=== PATIENT | male | born 1950 | race Caucasian/White ===

== ENCOUNTER → 2020-01-27 | Outpatient (CLI) | payer MEDICARE, OTHER, SELFPAY ==
[2020-01-27 15:21] VITALS: BMI 26.6
[2020-01-27 16:55] LABS: Absolute Lymphocyte Count 2.09 X10^3/uL (0.83-4.51); Absolute Neutrophil Count 3.1 X10^3/uL (2.0-7.7); Basophil# 0.06 X10^3/uL; Eosinophils% 3.4 % (0-5); Hematocrit 43.5 % (40-54); Lymphocyte # 2.09 X10^3/ul (4.0); Lymphocyte % 35.2 % (19-41); Mean Corp Hgb Conc 32.2 g/dL (32-36); Mean Corpuscular Hgb 30.4 pg (27.0-32.0); Mean Corpuscular Volume 94.6 fL (80-94); Mean Platelet Vol. 11.2 fl (6.2-12.0); Monocyte# 0.48 X10^3/uL; Monocyte% 8.1 % (0-10); NRBC Flagged by Analyzer 0 % (0-5); Neutrophil # 3.09 X10^3/uL (2.7-7.7); Platelet Count 138 K/mm3 (150-450); RBC Distribution Width CV 12.3 % (11.6-14.6); RBC Distribution Width SD 42.5 fl (35.1-43.9); White Blood Count 5.9 K/mm3 (4.4-11.0)
== END | disposition home or self-care (01) ==
LOC: LAB 16:27
PROVIDERS: PCP Family Medicine; Referring Provider Internal Medicine Cardiovascular Disease; Visit Provider Internal Medicine Cardiovascular Disease
DX: E78.2 Mixed hyperlipidemia (principal); R55 Syncope and collapse; R42 Dizziness and giddiness
CPT/HCPCS: 36415; 85025

== ENCOUNTER → 2020-02-12 | Outpatient (CLI) | payer MEDICARE, OTHER, SELFPAY ==
[2020-01-27 15:21] VITALS: BMI 26.6
--- NOTE | 2020-02-12 12:48 | CDU_ITS ---
Reason For Study: Near syncope Rt. Velocities/BP Lt. Velocities/BP Prox CCA 77.3/14.7 cm/sec. Prox CCA 93/17.3 cm/sec. Mid CCA 94.3/18.6 cm/sec. Mid CCA 90.4/17.3 cm/sec. Dist CCA 78.6/17.3 cm/sec. Dist CCA 83.8/18.6 cm/sec. Prox ICA 66.9/17.3 cm/sec. Prox ICA 73.4/17.3 cm/sec. Mid ICA 104.7/34.3 cm/sec. Mid ICA 96.9/31.7 cm/sec. Dist ICA 89.1/27.8 cm/sec. Dist ICA 100.8/29.1 cm/sec. Rt. ICA/CCA = 1.3. Lt. ICA/CCA = 1.1. Prox ECA 103.4/4.3 cm/sec. Prox ECA 89.1/3 cm/sec. Rt. Vert. 65.6/17.3 cm/sec. Lt. Vert. 65.6/17.3 cm/sec. Right Extracranial There is intimal thickening but no significant atherosclerotic plaque noted in the right common carotid artery. There is homogeneous, smooth atherosclerotic plaque noted in the right internal carotid artery. There is intimal thickening but no significant atherosclerotic plaque noted in the right external carotid artery. Antegrade flow is noted in the right vertebral artery. Left Extracranial There is intimal thickening but no significant atherosclerotic plaque noted in the left common carotid artery. There is intimal thickening but no significant atherosclerotic plaque noted in the left internal carotid artery. There is intimal thickening but no significant atherosclerotic plaque noted in the left external carotid artery. Antegrade flow is noted in the left vertebral artery. Procedure Carotid Duplex 72607. Exam performed in department. Interpretation Summary Smooth plague right proximal internal carotid with <50% stenosis <50% stenosis right external carotid Widely patent left internal carotid with <50% stenosis <50% stenosis left external carotid Patent and antegrade bilateral vertebrals Ordering Physician: Cali Macario Referring Physician: MD Harika Oswald Performed By: Mague Riley T
--- NOTE | 2020-02-12 12:48 | ECHOD_ITS ---
Reason For Study: Syncope/Near Syncope Procedure This was a 2D Doppler, Color Flow transthoracic echocardiogram. Contrast injection was performed. Exam performed in department. Left Ventricle Normal LV size. Left ventricular systolic function is normal. The estimated ejection fraction is 65 %. No evidence for diastolic dysfunction. No regional wall motion abnormalities noted. Right Ventricle Normal RV size. Normal systolic function. Atria Normal left atrium. Normal right atrium. No doppler evidence for ASD. Bubble contrast study negative for right to left interatrial shunt. Mitral Valve There is no mitral annular calcification. Mild diffuse mitral valve thickening. Trivial mitral valve insufficiency. Tricuspid Valve Normal tricuspid valve. Trivial tricuspid valve insufficiency. Right ventricular systolic pressure estimated to be 24 mmHg. Aortic Valve Trisinus/trileaflet aortic valve. Mild diffuse aortic valve thickening. Pulmonic Valve The pulmonic valve is not well visualized. Mild (1+) eccentric pulmonic valve insufficiency. Great Vessels The aortic root is not well visualized. Pericardium/Pleural No pericardial effusion. Medication 22 gauge I.V. with prn adaptor inserted into right arm. Performed a rapid injection of agitated mix of 9 cc saline and 1cc air to assess for atrial septal defect. MMode/2D Measurements & Calculations LVIDd: 4.4 cm IVSd: 1.3 cm LA dimension: 3.8 cm LVIDs: 2.8 cm LVPWd: 1.2 cm FS: 37.1 % LAV(MOD-bp): 49.0 ml LA A4 area: 16.6 cm2 RA A4 area: 15.8 cm2 LAV(MOD-bp) Indexed: 23.8 ml/m2 LAV(MOD-sp2): 58.5 ml LAV(MOD-sp4): 41.6 ml Time Measurements MV dec time: 0.36 sec Doppler Measurements & Calculations MV E max indra: 70.1 cm/sec Lat Peak E' Indra: 10.4 cm/sec Med Peak E' Indra: 8.8 cm/sec MV A max indra: 90.1 cm/sec E/E' lat: 6.7 E/E' med: 8.0 MV E/A: 0.78 MV V2 max: 93.2 cm/sec MV P1/2t max indra: 73.1 cm/sec Ao V2 max: 130.1 cm/sec MV max P.5 mmHg MV P1/2t: 98.8 msec Ao max P.8 mmHg MV V2 mean: 47.4 cm/sec MV dec slope: 216.8 cm/sec2 MV mean P.1 mmHg MV V2 VTI: 25.0 cm MVA(P1/2t): 2.2 cm2 LV V1 max: 102.6 cm/sec PA V2 max: 95.3 cm/sec TR max indra: 231.1 cm/sec LV V1 max P.2 mmHg TR max P.4 mmHg Interpretation Summary Contrast injection was performed. Left ventricular systolic function is normal. The estimated ejection fraction is 65 %. Mild diffuse mitral valve thickening. Trivial mitral valve insufficiency. Trivial tricuspid valve insufficiency. Mild diffuse aortic valve thickening. Mild (1+) eccentric pulmonic valve insufficiency. Right ventricular systolic pressure estimated to be 24 mmHg. No evidence for diastolic dysfunction. Bubble contrast study negative for right to left interatrial shunt. Ordering Physician: Cali Macario Referring Physician: MD Harika Oswald Performed By: Ren Walsh [facility]
== END | disposition home or self-care (01) ==
PROVIDERS: PCP Family Medicine; Referring Provider Internal Medicine Cardiovascular Disease; Visit Provider Internal Medicine Cardiovascular Disease
DX: R55 Syncope and collapse (principal); R42 Dizziness and giddiness; E78.2 Mixed hyperlipidemia
CPT/HCPCS: 93306; 93880

== ENCOUNTER → 2020-03-04 | Outpatient (CLI) | payer MEDICARE, OTHER, SELFPAY ==
[2020-01-27 15:21] VITALS: BMI 26.6
== END | disposition home or self-care (01) ==
LOC: LABSPEC 17:37
PROVIDERS: PCP Family Medicine
DX: J02.9 Acute pharyngitis, unspecified (principal); Z20.828 Contact with and (suspected) exposure to other viral communicable diseases
CPT/HCPCS: 87635; G2023; U0003

== ENCOUNTER → 2023-10-23 | Outpatient (CLI) | payer MEDICARE, SELFPAY | END | disposition home or self-care (01) | PROVIDERS: PCP Family Medicine; Visit Provider Family Medicine | DX: G47.10 Hypersomnia, unspecified (principal); R06.83 Snoring | CPT/HCPCS: 95810 ==

== ENCOUNTER 2023-10-30 01:58 | Inpatient (IN) | payer MEDICARE, OTHER, SELFPAY ==
[2023-10-30] VITALS (12 sets, daily range): BP systolic 132–179; BP diastolic 64–84; PULSE 59–95; RESP 16–18; TEMP 36.3–37.4; O2SAT 92–100; BMI 28.7; BMI 29.0
[2023-10-30 02:24] LABS: Absolute Lymphocyte Count 2.28 X10^3/uL (0.83-4.51); Absolute Neutrophil Count 8.6 X10^3/uL (2.0-7.7); Basophil% 0.8 % (0-1); Eosinophil# 0.23 X10^3/uL; Eosinophils% 1.9 % (0-5); Hematocrit 41.7 % (40-54); Hemoglobin 13.8 g/dL (13.0-16.5); Lymphocyte # 2.28 X10^3/ul (0.83-4.51); Lymphocyte % 19.1 % (19-41); Mean Corp Hgb Conc 33.1 g/dL (32-36); Mean Corpuscular Hgb 29.7 pg (27.0-32.0); Mean Corpuscular Volume 89.9 fL (80-94); Mean Platelet Vol. 10.8 fl (6.2-12.0); Monocyte# 0.67 X10^3/uL; Monocyte% 5.6 % (0-10); NRBC Flagged by Analyzer 0 % (0-5); Neutrophil # 8.61 X10^3/uL (2.7-7.7); Neutrophil % 72.1 % (47-70); Platelet Count 145 K/mm3 (150-450); RBC Distribution Width CV 12.2 % (11.6-14.6); RBC Distribution Width SD 39.7 fl (35.1-43.9); Red Blood Count 4.64 M/mm3 (4.6-6.2)
--- NOTE | 2023-10-30 02:29 | EDS_ITS ---
HPI HPI - GI History of Present Illness Chief Complaint: Abd Pain Informant: patient Abdominal Pain/Flank Pain Onset: Hours (6-7) Context: Gradual Onset Timing: Continuous Quality: Aching Location: - (across upper abd, no radiation; no back, chest, or shoulder pain) Current Severity: Moderate Maximum Severity: Moderate Worsened by: Movement Relieved by: Nothing Nausea/Vomiting/Emesis GI Symptom: Positive for Nausea and Vomiting Onset: Today Quality: Positive for Nonbilious Episodes: 1 Diarrhea/Melena/Hematochezia GI Symptom: Negative for Diarrhea, Melena or Hematochezia Associated Symptoms Associated Symptoms: Negative for Dysuria, Frequency or Hematuria Narrative Narrative: Patient presenting with constant upper abdominal discomfort not colicky, starting about 2 hours after eating a couple pieces of pizza for dinner. Has been unrelenting. Never had this abdominal pain before. Some nausea and 1 bout of nonbloody emesis with it. No history of prior abdominal surgeries that he can recall. [facility] Medical History Depressive disorder Dizziness Generalized anxiety disorder Lightheadedness Mixed hyperlipidemia Home Medications buspirone 15 mg tablet 15 mg PO BID 01/25/20 [History Last Taken Unknown] dutasteride 0.5 mg capsule 0.5 mg PO DAILY 01/25/20 [History Last Taken Unknown] fluticasone propionate 50 mcg/actuation nasal spray,suspension (Flonase Allergy Relief) 1 spray intranasal BID 01/25/20 [History Last Taken Unknown] lorazepam 0.5 mg tablet 0.5 mg PO DAILY PRN anxiety 01/25/20 [History Last Taken Unknown] venlafaxine 37.5 mg capsule,extended release 24 hr (Effexor XR) 37.5 mg PO BID 01/25/20 [History Last Taken Unknown] naproxen 500 mg tablet (Naprosyn) 500 mg PO BID 10/30/23 [History Last Taken Unknown] Allergy/AdvReac Type Severity Reaction Status Date / Time bupropion [From Wellbutrin] AdvReac Severe anxiety Verified 10/30/23 01:59 nortriptyline AdvReac Severe Lightheaded Verified 10/30/23 01:59 ness sertraline AdvReac Severe libido Verified 10/30/23 01:59 tamsulosin AdvReac Severe Lightheaded Verified 10/30/23 01:59 ness Family History (Updated 01/27/20 @ 15:22 by Ginny Centeno) Father Amyotrophic lateral sclerosis (ALS) Mother Cardiac pacemaker in situ Surgical History History of tonsillectomy and adenoidectomy History of vasectomy Status post nasal septoplasty Social History Smoking Status: Former smoker alcohol intake: current details: 2 beers daily substance use type: does not use caffeine: No ROS ROS ED Constitutional Constitutional ED: Denies chills or fever(s) Eyes Eyes: Denies change in vision or diplopia ENT ENT ED: Denies rhinorrhea or sore throat Cardiovascular Cardiovascular: Denies chest pain or palpitations Respiratory/Chest Respiratory/Chest: Denies cough or dyspnea Gastrointestinal Gastrointestinal: Reports abdominal pain, nausea and vomiting; Denies diarrhea Genitourinary Genitourinary ED: Denies dysuria or hematuria Musculoskeletal Musculoskeletal: Denies back pain or neck pain Integumentary Denies abscess or rash Neurologic Neurologic: Denies headache(s), paresthesias or weakness Psychiatric Psychiatric: Denies anxiety or suicidal thoughts EXAM Physical Exam Const Vital Signs: 10/30/23 01:59 10/30/23 03:59 Temperature 97.3 F L Temperature Source Temporal Pulse Rate 59 L Respiratory Rate 18 16 Blood Pressure 179/82 H Blood Pressure Mean 114 Pulse Ox 95 Oxygen Delivery Method Room Air Positive well nourished and well developed General Appearance ED: well developed and NAD HEENT Reports moist mucous membranes normocephalic and atraumatic Eyes PERRL and EOMs intact bilaterally Neck full ROM and supple Resp normal respiratory effort and clear to auscultation bilaterally Cardio regular rate, regular rhythm and no murmurs GI non-distended GI Narrative: Tender right upper quadrant and epigastrium, otherwise benign abdomen. Positive Franz. Auscultation: normoactive bowel sounds Palpation: soft Back/Spine no CVA tenderness General Back: other FROM Extremity normal to inspection General Extremety ED: Negative for edema, pulses abnormal or tenderness General Extremity: Negative for edema or pulses abnormal Neuro oriented x3, CN's II-XII intact bilaterally and no sensory deficits noted Sensorium / Orientation: awake and alert Motor Exam: strength 5/5 throughout Skin no rashes or lesions noted and no wounds MDM MDM MDM Narrative Medical decision making narrative: Patient presents around 2 AM when ultrasound is no longer available. Therefore I did a bedside ultrasound, and I confirm a distended gallbladder with multiple large shadowing stones and a positive sonographic Franz. He was given Zofran and Toradol which helped his nausea but not his pain, after which she was given morphine. He has a mild leukocytosis of 12.0, LFTs are normal. Obtained a CT. I reviewed the images and the results, it does not see the gallstones or any radiographic signs of acute cholecystitis, although I think that is the diagnosis and CT is not the best test for this. It was obtained since ultrasound was not available. Incidentally there is a right renal mass that is suspicious for renal cell carcinoma. I discussed that as well as the chances of this being cancerous/malignant with the patient. He understands. Discussed with surgery; advises we observe him for several hours until ultrasound will be here, and obtain ultrasound of the gallbladder and the kidney as soon as the services available in the morning, and he will see the patient subsequently if it confirms our suspicion of acute cholecystitis/cholelithiasis. Lab Data Attestation: I reviewed the patient's lab results. Labs: Laboratory Results - last 24 hr 10/30/23 02:18 WBC 12.0 H RBC 4.64 Hgb 13.8 Hct 41.7 MCV 89.9 MCH 29.7 MCHC 33.1 RDW Std Deviation 39.7 RDW Coeff of Marshall 12.2 Plt Count 145 L MPV 10.8 Immature Gran % (Auto) 0.500 Neut % (Auto) 72.1 H Lymph % (Auto) 19.1 [place] % (Auto) 5.6 Eos % (Auto) 1.9 Baso % (Auto) 0.8 Absolute Neuts (auto) 8.6 H Absolute Lymphs (auto) 2.28 Nucleated RBC % 0 Sodium 140 Potassium 3.7 Chloride 110 H Carbon Dioxide 26.0 Anion Gap 4 L BUN 25 H Creatinine 1.16 Estim Creat Clear Calc 63.29 Est GFR (MDRD) Af Amer 79 Est GFR (MDRD) Non-Af 65 BUN/Creatinine Ratio 21.6 H Glucose 135 H Calcium 8.8 Total Bilirubin 0.50 AST 27 ALT 27 Alkaline Phosphatase 68 Total Protein 6.5 Albumin 3.6 Globulin 2.9 Albumin/Globulin Ratio 1.2 Lipase 19 Radiography Diagnostic Testing: Clinical Impression(s) from Imaging Studies Abdomen/Pelvis CT 10/30/23 02:33 IMPRESSION: 1. 2.7 cm solid round mass in the right kidney highly suspicious for renal cell carcinoma. 2. 7 mm cyst within the tail of the pancreas. Recommend follow-up with CT versus MRI with dedicated pancreas protocol in 2 years. 3. No acute intra-abdominal abnormality. Electronically Signed: Valdemar Lopez DO at 3:18 EST , ADDENDUM: 10/30/23 0336 IMPRESSION: 1. 2.7 cm solid round mass in the right kidney highly suspicious for renal cell carcinoma. 2. 7 mm cyst within the tail of the pancreas. Recommend follow-up with CT versus MRI with dedicated pancreas protocol in 2 years. 3. No acute intra-abdominal abnormality. N.B. : kylah murray RN, confirmed on 10/30/2023 03:29:09 (ET) that the healthcare facility has received the radiology report. Electronically Signed: Valdemar Lopez DO at 3:18 EST , Management Discussion w/another healthcare provider: [employer] (Surgery Dr. Aj) Discharge Plan Dx/Rx/DC Orders Clinical Impression: Acute calculous cholecystitis Disposition Disposition: Acute Care [facility]
--- NOTE | 2023-10-30 02:33 | CT_ITS ---
INDICATION: Upper abdominal pain, nausea/vomiting EXAMINATION: CT Abdomen And Pelvis W/ Contrast Injection TECHNIQUE: Helically acquired images were obtained of the abdomen and pelvis with sagittal and coronal reconstructed images. Individualized dose optimization techniques were used for this CT. IV contrast dosage and agent: 100 mL of Isovue-370. Oral contrast: None. COMPARISON: None. FINDINGS: VESSELS: No abdominal aortic aneurysm or dissection. LIVER: No evidence of a mass. No intrahepatic or extrahepatic biliary duct dilation. GALLBLADDER: No calcified stones. No evidence of cholecystitis. PANCREAS: 7 mm cyst within the tail of the pancreas. No evidence of pancreatitis. SPLEEN: Calcifications consistent with benign old granulomatous disease. ADRENAL GLANDS: Normal. KIDNEYS AND URETERS: No urinary tract stone. No hydronephrosis or hydroureter. No significant asymmetric perinephric stranding. 2.7 cm solid round mass in the inferior right kidney. URINARY BLADDER: Unremarkable. BOWEL: No evidence of diverticulosis or diverticulitis. Appendix appears normal. No evidence of bowel obstruction. REPRODUCTIVE ORGANS: No evidence of a pelvic mass. PERITONEUM: No intraabdominal free fluid or free air. LYMPH NODES: No pathologically enlarged mesenteric or retroperitoneal lymph nodes. ABDOMINAL WALL: No abdominal or pelvic wall hernia. BONES: No acute abnormality. LOWER CHEST: Visualized lung bases are unremarkable. CT/Abdomen/Pelvis W IV Cont ONLY IMPRESSION: 1. 2.7 cm solid round mass in the right kidney highly suspicious for renal cell carcinoma. 2. 7 mm cyst within the tail of the pancreas. Recommend follow-up with CT versus MRI with dedicated pancreas protocol in 2 years. 3. No acute intra-abdominal abnormality. Electronically Signed: Valdemar Lopez DO at 3:18 EST ,
--- OUTSIDE RECORDS SUMMARY | 2023-10-30 02:35 | XMS RPT_ITS | CCD ---
Author Name Unknown Address [address] [place] [address] [place] [id number] Organization [facility] Care Team Providers Care Printing Supervisor Name Role Phone Juani Kovacs MD Primary Care Provider [phone] JUANI KOVACS Primary Care Unavailable FILI JENSEN Attending Unavailable JUANI KOVACS Primary Care Unavailable JUANI KOVACS Attending Unavailable JUANI KOVACS Primary Care Unavailable JUANI KOVACS Attending Unavailable JUANI KOVACS Referring Unavailable JUANI KOVACS Primary Care Unavailable JUANI KOVACS Attending Unavailable JUANI KOVACS Primary Care Unavailable Juani Kovacs MD Primary Care Provider [phone] Allergies Allergy Classification Reported Allergen(s) Allergy Type Date of Onset Reaction(s) Facility (15 sources) buPROPion; Translations: [BUPROPION HCL] Drug Allergy 10-29-2008 Intolerance [facility] (15 sources) Nortriptyline; Translations: [NORTRIPTYLINE] Drug Allergy 12-31-2006 Intolerance [facility] (15 sources) Sertraline; Translations: [SERTRALINE HCL] Drug Allergy 10-29-2008 Intolerance [facility] (15 sources) tamsulosin; Translations: [TAMSULOSIN HCL] Drug Allergy 06-05-2010 Intolerance [facility] Medications Current Medications Medication Drug Class(es) Dates Sig (Normalized) Sig (Original) LORazepam 0.5 mg oral tablet (19 sources) Benzodiazepine Start: 03-26-2022 End: 12-16-2023 take 1 tablet by mouth once daily LORazepam (ATIVAN) 0.5 mg Indications: Generalized anxiety disorder Take 1 tablet by mouth once daily for 90 days. 30 tablet 2 09/17/2023 12/16/2023 Active Completed/Discontinued Medications Medication Drug Class(es) Dates Sig (Normalized) Sig (Original) busPIRone hydrochloride 15 mg oral tablet (16 sources) Start: 01-08-2022 End: 01-02-2023 take 0.5 tablet by mouth twice daily busPIRone (BUSPAR) 15 mg tablet Indications: Generalized anxiety disorder , Mild episode of recurrent major depressive disorder (HCC) Take 0.5 tablets by mouth twice daily. 90 tablet 3 01/03/2023 Active Problems Active Problems Problem Classification Problem Date Documented Date Episodic/Chronic Adjustment disorders (14 sources) Stress and adjustment reaction; Translations: [Adjustment disorder with other symptoms] Onset: 08-05-2014 08-05-2014 Chronic Anxiety disorders (20 sources) Generalized anxiety disorder; Translations: [Generalized anxiety disorder] Chronic Diseases of mouth; excluding dental (1 source) Lesion of tongue; Translations: [Other diseases of tongue] Episodic Disorders of lipid metabolism (19 sources) Mixed hyperlipidemia; Translations: [Mixed hyperlipidemia] Onset: 10-26-2015 10-26-2015 Chronic Hyperplasia of prostate (20 sources) Benign prostatic hypertrophy with outflow obstruction; Translations: [Benign prostatic hyperplasia with lower urinary tract symptoms] Onset: 06-29-2010 09-22-2015 Chronic Immunizations and screening for infectious disease (2 sources) Needs influenza immunization; Translations: [Encounter for immunization] 07-01-2023 Episodic Miscellaneous mental health disorders (14 sources) Psychosexual dysfunction; Translations: [Unspecified sexual dysfunction not due to a substance or known physiological condition] 06-26-2005 Chronic Mood disorders (17 sources) Recurrent major depressive episodes, mild ; Translations: [Major depressive disorder, recurrent, mild] Onset: 03-13-2006 01-07-2018 Chronic Osteoarthritis (18 sources) Degenerative joint disease involving multiple joints; Translations: [Polyosteoarthritis, unspecified] Onset: 07-01-2023 05-21-2006 Chronic Other diseases of bladder and urethra (14 sources) Bladder neck obstruction; Translations: [Bladder-neck obstruction] Onset: 06-29-2010 06-29-2010 Chronic Other endocrine disorders (14 sources) Testicular hypofunction; Translations: [Testicular hypofunction] Onset: 04-25-2006 04-25-2006 Chronic Other male genital disorders (14 sources) Secondary erectile dysfunction; Translations: [Male erectile dysfunction, unspecified] 05-21-2006 Chronic Other non-traumatic joint disorders (3 sources) Joint pain; Translations: [Pain in unspecified joint] Episodic Viral infection (1 source) COVID-19; Translations: [COVID-19] Onset: 10-05-2022 Past or Other Problems Problem Classification Problem Date Documented Da te Episodic/Chronic Other connective tissue disease (14 sources) Disorder of rotator cuff; Translations: [Other specified disorders of rotator cuff syndrome of shoulder and allied disorders] Onset: 08-08-2005 08-08-2005 Episodic Other diseases of kidney and ureters (1 source) Other obstructive and reflux uropathy; Translations: [BPH with urinary obstruction] Onset: 09-22-2015 Episodic Other non-traumatic joint disorders (14 sources) Pain in right hip joint; Translations: [Pain in right hip] Onset: 07-10-2017 07-10-2017 Episodic Viral infection (9 sources) Disease caused by 2019-nCoV; Translations: [COVID-19] Onset: 10-05-2022 10-05-2022 Episodic Results Test Name Value Interpretation Reference Range Facil ity Vital Signs Date Time Vital Sign Value Performing Clinician Dyan machado 07-01-2023 13:37-0500 Body weight 90.99 kg Juani Kovacs MD Work Phone: [facility] 07-01-2023 13:37-0500 Diastolic blood pressure 76 mm[Hg] Juani Kovacs MD Work Phone: [facility] 07-01-2023 13:37-0500 Heart rate 74 /min Juani Kovacs MD Work Phone: [facility] 07-01-2023 13:37-0500 Respiratory rate 16 /min Juani Kovacs MD Work Phone: [facility] 07-01-2023 13:37-0500 Systolic blood pressure 120 mm[Hg] Juani Kovacs MD Work Phone: [facility] 12-25-2022 09:56-0400 Body weight 90.27 kg Juani Kovacs MD Work Phone: [facility] 12-25-2022 09:56-0400 Diastolic blood pressure 78 mm[Hg] Juani Kovacs MD Work Phone: [facility] 12-25-2022 09:56-0400 Heart rate 82 /min Jauni Kovacs MD Work Phone: [facility] 12-25-2022 09:56-0400 Respiratory rate 16 /min Juani Kovacs MD Work Phone: [facility] 12-25-2022 09:56-0400 Systolic blood pressure 118 mm[Hg] Juani Kovacs MD Work Phone: [facility] 07-11-2022 14:39-0500 Body weight 91.26 kg Juani Kovacs MD Work Phone: [facility] 07-11-2022 14:39-0500 Diastolic blood pressure 84 mm[Hg] Juani Kovacs MD Work Phone: [facility] 07-11-2022 14:39-0500 Heart rate 64 /min Juani Kovacs MD Work Phone: [facility] 07-11-2022 14:39-0500 Respiratory rate 16 /min Juani Kovacs MD Work Phone: [facility] 07-11-2022 14:39-0500 Systolic blood pressure 132 mm[Hg] Juani Kovacs MD Work Phone: [facility] 01-08-2022 15:22-0400 Body weight 91.9 kg Juani Kovacs MD Work Phone: [facility] 01-08-2022 15:22-0400 Diastolic blood pressure 82 mm[Hg] Juani Kovacs MD Work Phone: [facility] 01-08-2022 15:22-0400 Heart rate 68 /min Juani Kovacs MD Work Phone: [facility] 01-08-2022 15:22-0400 Respiratory rate 16 /min Juani Kovacs MD Work Phone: [facility] 01-08-2022 15:22-0400 Systolic blood pressure 134 mm[Hg] Juani Kovacs MD Work Phone: [facility] Encounters Encounter Date Encounter Type Care Provider Facility Start: 10-09-2023 Shannon CARBALLO RN.WELDER/FITTER Work Phone: [facility] Procedures Date Procedure Procedure Detail Performing Clinician Start: 07-01-2023 INFLUENZA VACCINE, P RSV FREE, AGE 65+ YR, HIGH DOSE, QUADRIVALENT (FLUZONE HIGH-DOSE) Juani Kovacs MD Work Phone: Start: 07-01-2023 PFIZER-BIONTECH COVI D-19 VACCINE (2022- SEASON) AGE 12+ YR Juani Kovacs MD Work Phone: Start: 06-24-2023 Lipid 1996 panel - S frankie or Plasma Juani Kovacs MD Work Phone: Start: 06-01-2022 Lipid 1996 panel - S frankie or Plasma Fili Jensen APRN.WELDER/FITTER Work Phone: Start: 08-11-2014 Colonoscopy Fili chen 21 DEALER.WELDER/FITTER Work Phone: Plan of Treatment Date Care Activity Detail Author Start: 06-24-2028 Lipid 1996 panel - Serum or Plasma Lipid Screening [facility] Start: 06-24-2028 Lipid panel Lipid Screening [facility] Start: 06-01-2027 Lipid 1996 panel - Serum or Plasma Lipid Screening [facility] Start: 06-01-2027 LIPID SCREEN LIPID SCREEN [facility] Start: 07-11-2026 LIPID SCREEN LIPID SCREEN [facility] Start: 06-24-2026 Diabetes Screening Diabetes Screening [facility] Start: 06-01-2025 DIABETES SCREEN DIABETES SCREEN [facility] Start: 06-01-2025 Diabetes Screening Diabetes Screening [facility] Start: 05-31-2025 Urine microalbumin profile [facility] Start: 08-11-2024 Colonoscopy COLONOSCOPY [facility] Start: 08-11-2024 COLORECTAL CANCER SCREENING COLORECTAL CANCER SCREENING [facility] Start: 08-11-2024 Screening for malignant neoplasm of colon [facility] Start: 07-11-2024 DIABETES SCREEN DIABETES SCREEN [facility] Start: 08-26-2023 Advance Directive Discussion Advance Directive Discussion [facility] Start: 08-26-2023 Depression Assessment Depression Assessment [facility] Start: 06-27-2023 End: 08-27-2023 Comprehensive metabolic 2000 panel - Serum or Plasma COMP METABOLIC PANEL Lab Routine Mixed hyperlipidemia Expected: 06/27/2023 (Approximate), Expires: 08/27/2023 [facility] Work Phone: Immunizations Immunization Date Immunization Notes Care Provider Santos fuentes 07-01-2023 COVID-19 vaccine, ag e 12+ yr, 2022- season (PFIZER-BIONTECH) Juani Kovacs MD Work Phone: [facility] 07-01-2023 influenza (HD-IIV4) vaccine, age 65+ yr, high dose, quadrivalent, PF (FLUZONE HIGH-DOSE) Juani Kovacs MD Work Phone: [facility] 05-12-2022 influenza virus vacc ine, unspecified formulation Fili Iraj 21 DEALER.WELDER/FITTER Work Phone: [facility] 01-27-2022 COVID-19 vaccine, booster dose (MODERNA) Juani Kovacs MD Work Phone: [facility] 07-04-2021 COVID-19 vaccine, ag e 12+ yr (PFIZER-BIONTECH - PURPLE TOP) Fili Iraj 21 DEALER.WELDER/FITTER Work Phone: [facility] 05-29-2021 influenza, high dose seasonal, preservative-free Fili Iraj 21 DEALER.WELDER/FITTER Work Phone: [facility] 11-02-2020 COVID-19 vaccine, ag e 12+ yr (PFIZER-BIONTECH - PURPLE TOP) Fili Iraj 21 DEALER.WELDER/FITTER Work Phone: [facility] 10-18-2020 zoster vaccine recombinant Fili Iraj 21 DEALER.WELDER/FITTER Work Phone: [facility] 10-05-2020 COVID-19 vaccine, ag e 12+ yr (PFIZER-BIONTECH - PURPLE TOP) Fili Iraj 21 DEALER.WELDER/FITTER Work Phone: [facility] 07-08-2020 zoster vaccine recombinant Fili Iraj 21 DEALER.WELDER/FITTER Work Phone: [facility] 05-14-2020 influenza, high dose seasonal, preservative-free Fili Iraj 21 DEALER.WELDER/FITTER Work Phone: [facility] 07-07-2018 influenza, high dose seasonal, preservative-free Fili Iraj 21 DEALER.WELDER/FITTER Work Phone: [facility] 06-05-2017 influenza, high dose seasonal, preservative-free Fili Iraj 21 DEALER.WELDER/FITTER Work Phone: [facility] 05-26-2016 influenza, seasonal, injectable Fili Iraj 21 DEALER.WELDER/FITTER Work Phone: [facility] 10-06-2015 pneumococcal polysaccharide vaccine, 23 valent Fili Iraj 21 DEALER.WELDER/FITTER Work Phone: [facility] 05-31-2015 influenza, high dose seasonal, preservative-free Fili Iraj 21 DEALER.WELDER/FITTER Work Phone: [facility] Work Phone: 05-31-2015 tetanus toxoid, redu remedios diphtheria toxoid, and acellular pertussis vaccine, adsorbed Fili Iraj 21 DEALER.WELDER/FITTER Work Phone: [facility] Work Phone: 03-09-2015 hepatitis A and hepatitis B vaccine Fili Iraj 21 DEALER.WELDER/FITTER Work Phone: [facility] 09-22-2014 hepatitis A and hepatitis B vaccine Fili Iraj 21 DEALER.WELDER/FITTER Work Phone: [facility] 08-05-2014 pneumococcal conjuga te vaccine, 13 valent Fili Iraj 21 DEALER.WELDER/FITTER Work Phone: [facility] 08-03-2014 hepatitis A and hepatitis B vaccine Fili Iraj 21 DEALER.WELDER/FITTER Work Phone: [facility] 06-26-2014 influenza, seasonal, injectable Fili Iraj 21 DEALER.WELDER/FITTER Work Phone: [facility] 07-10-2013 influenza virus vacc ine, unspecified formulation Fili Iraj 21 DEALER.WELDER/FITTER Work Phone: [facility] 06-22-2012 influenza virus vacc ine, unspecified formulation Fili Iraj 21 DEALER.WELDER/FITTER Work Phone: [facility] 06-06-2011 zoster vaccine, live Fili C ecil 21 DEALER.WELDER/FITTER Work Phone: [facility] 06-05-2010 influenza virus vacc ine, unspecified formulation Fili Iraj 21 DEALER.WELDER/FITTER Work Phone: [facility] 06-03-2009 influenza virus vacc ine, unspecified formulation Fili Iraj 21 DEALER.WELDER/FITTER Work Phone: [facility] 07-16-2007 influenza virus vacc ine, unspecified formulation Fili Iraj 21 DEALER.WELDER/FITTER Work Phone: [facility] 06-19-2006 influenza virus vacc ine, unspecified formulation Fili Iraj 21 DEALER.WELDER/FITTER Work Phone: [facility] Work Phone: Payers Date Payer Category Payer Medicare [id number] 2019 Unknown MMO MMO MEDICARE SUPPLEMENT [id number] 2019-Present [phone] [address] [place] [address] Indemnity [id number] 2019 Unknown MMO MMO MEDICARE SUPPLEMENT [id number] 2019-Present [phone] [address] [place] [address] Indemnity [id number] 2014 Medicare MEDICARE MEDICAR E A AND B [id number] 2014-Present [phone] [address] [address] [place] [address] Medicare [id number] 2014 Medicare MEDICARE MEDICAR E A AND B [id number] 2014-Present [phone] [place] [address] Medicare [id number] 2014 Medicare [id number] Social History Date Type Detail Facility Start: 10-29-2017 End: 07-11-2022 Tobacco smoking status NHIS Ex-smoker [facility] Start: 11-06-2021 End: 09-17-2023 Alcohol intake Current drinker of alcohol (finding) [facility] Start: 04-11-2020 End: 10-05-2022 History SDOH Alcohol Frequency 5 [facility] Start: 04-11-2020 End: 10-05-2022 History SDOH Alcohol Std Drinks 1 [facility] Start: 09-12-2016 History SDOH Alcohol Comment two beer daily [facility] Start: 04-11-2020 End: 10-05-2022 History SDOH Social Connections Phone 2 [facility] Start: 04-11-2020 End: 10-05-2022 History SDOH Social Connections Living 3 [facility] Start: 04-11-2020 End: 10-05-2022 History SDOH Physical Activity DPW 6 [facility] Start: 04-11-2020 History SDOH Physica l Activity MPS 10 [facility] Start: 04-11-2020 Education 17 [facility] Start: 1950 Sex Assigned At Not on file [facility] Start: 12-29-2021 End: 07-11-2022 Exposure to SARS-CoV-2 (event) Not sure [facility] History of tobacco use Current smoker [facility] Start: 10-29-2017 End: 07-11-2022 Tobacco use and exposure Smokeless tobacco non-user [facility] Start: 07-11-2022 Tobacco [facility] Start: 10-05-2022 End: 07-01-2023 History of Social function [facility] Start: 10-05-2022 End: 07-01-2023 Social connection and isolation panel [facility] Do you belong to any clubs or organizations such as baptist groups, unions, fraternal or athletic groups, or school groups? Yes [facility] Are you now , , , , never or living with a partner? [facility] How often to you hav e a drink containing alcohol? 4 or more times a week [facility] How many standard dr inks containing alcohol do you have on a typical day? 1 or 2 [facility] How often do you hav e 6 or more drinks on 1 occasion? Never [facility] How hard is it for y ou to pay for the very basics like food, housing, medical care, and heating Not hard at all [facility] Do you feel stress - tense, restless, nervous, or anxious, or unable to sleep at night because your mind is troubled all the time - these days [OSQ] Only a little [facility] (I/We) worried wheth er (my/our) food would run out before (I/we) got money to buy more. Never true [facility] In the past 12 month s, was there a time when you were not able to pay the mortgage or rent on time? No [facility] Clinical Notes 08-05-2014 to 10-10-2023 Telephone Encounter - Juani Kovacs MD - 10/10/2023 11:54 AM ESTTelephone Encounter - Meredith Lopez Ma - 09/26/2023 9:58 AM Juani Daly MD - 07/01/2023 1:40 PM EST Note Date & Type Note [facility] 10-10-2023 Miscellaneous Notes OK to refill as ordered Juani Kovacs MD documented in this encounter [facility] 09-26-2023 Miscellaneous Notes [facility] sleep disorder center sends request of recent OV discussing need for sleep study as well as med list and problem list. This has been printed and faxed to [facility] Sleep Center at [phone]. Meredith Lopez Ma documented in this encounter [facility] 09-17-2023 Note HNO ID: [id number] Author: JUANI KOVACS MD Service: ? Author Type: Physician Type: Progress Notes Filed: 09/17/2023 11:02 Note Text: Chief Complaint Patient presents with: Sleep Problem HPI Juan Jose Shultz is a 73 year old male who presents here today for an acute visit. Pt here today to discuss getting a sleep study. Pt wrote into the office stating that he feels his sleep apnea is getting worse and needs to have another sleep study completed. He reports that he's snoring, chases his out of the bedroom. Doesn't wake up feeling rested and more tired during the day. Will get up and sit down in the living room and fall back asleep. Doesn't have any apnea events but does wake himself on his exhale at times sounds explosive. Reports his mouth is always dry. He previously participated in a sleep study and was found to be marginal. Previously did with Dr. Khan, this was about 5 years ago. He currently does not have a CPAP at home. Pt okay with completing at [facility]. Past medical history, appointments, medications, allergies reviewed. Previous Medical History PAST MEDICAL HISTORY Diagnosis Date Depressive disorder, not elsewhere classified Generalized anxiety disorder Anxiety, Generalized Generalized osteoarthrosis, unspecified site Impotence of organic origin Impotence Previous Surgical History PAST SURGICAL HISTORY Procedure Laterality Date ADENOIDECTOMY PRIMARY Adenoidectomy BLEPHAROPLASTY UPPER EYELID W/EXCESSIVE SKIN Bilateral 12/04/2021 COLONOSCOPY FLX DX W/COLLJ SPEC WHEN PFRMD 05/28/2003 Colonoscopy COLONOSCOPY FLX DX W/COLLJ SPEC WHEN PFRMD 08/11/2014 Colonoscopy SEPTOPLASTY/SUBMUCOUS RESECJ W/WO CARTILAGE GRF Septoplasty SPHINCTEROTOMY 06/29/2003 TONSILLECTOMY PRIMARY/SECONDARY Tonsillectomy VASECTOMY UNI/BI SPX W/POSTOP SEMEN EXAMS Family History FAMILY HISTORY Problem Relation Age of Onset other (ALS) Father Patient Allergies ALLERGIES Allergen Reactions Flomax [Tamsulosin * Intolerance profound light headed when standing Nortriptyline Intolerance urine outlet,light headed Wellbutrin [Bupropi* Intolerance anxiety Zoloft [Sertraline * Intolerance libido Current Medications Current Outpatient Medications on File Prior to Visit Medication Sig LORazepam (ATIVAN) 0.5 mg Take 1 tablet by mouth once daily for 90 days. Naproxen (EC-NAPROSYN) 375 mg TbEC Take 1 tablet by mouth twice daily with meals. busPIRone (BUSPAR) 15 mg tablet Take 0.5 tablets by mouth twice daily. dutasteride (AVODART) 0.5 mg capsule Take 1 capsule by mouth once daily. venlafaxine (EFFEXOR) 37.5 mg tablet TAKE 1 TABLET TWICE DAILY fluticasone (FLONASE) 50 mcg/actuation nasal spray Use 1 [place] in each nostril twice daily. loratadine (CLARITIN) 10 mg ORAL Tab Take one(1) tablet daily as needed for allergy symptoms. No current facility-administered medications on file prior to visit. Social History Social History Tobacco Use Smoking status: Former Smokeless tobacco: Never Tobacco comments: quit 25 years ago Vaping Use Vaping Use: Never used Substance Use Topics Alcohol use: Yes Comment: two beer daily Drug use: No EXAM: BP 138/88 (BP Site: Left Arm, BP Position: Sitting, BP Cuff Size: Regular Adult) Pulse 68 Resp 18 Wt 90 kg (198 lb 6.4 oz) BMI 27.67 kg/m? General Appearance: Well appearing, alert, in no acute distress, well-hydrated, well nourished.. Lungs: Lungs clear to auscultation. No wheezing, rhonchi, rales.. Heart: RRR without murmur, gallop, or rubs. No ectopy. Health Maintenance List RSV Vaccine(1 - 1-dose 60+ series) Never done Advance Directive Discussion Never done Colorectal Cancer Screening due on 08/11/2024 DTaP,Tdap,Td Vaccine(2 - Td or Tdap) due on 05/31/2025 Diabetes Screening due on 06/24/2026 Lipid Screening due on 06/24/2028 Abdominal Aortic Aneurysm Screening Completed Influenza Vaccine Completed Hepatitis C Screening Completed Shingrix Vaccine Completed Covid-19 Vaccine Completed Pneumococcal Vaccine: 65+ Completed Data reviewed None ASSESSMENT/PLAN: 1. Snoring - ICD9: 786.09, ICD10: R06.83 (primary diagnosis) - Will order PSG to complete at [facility] 2. Hypersomnia - ICD9: 780.54, ICD10: G47.10 - As noted above 3. Generalized anxiety disorder - ICD9: 300.02, ICD10: F41.1 - Rx sent into Pharmacy - LORAZEPAM 0.5 MG TABLET Will fax order over to [facility], once results received will review. I agree with the Chief Complaint, ROS, and Past Histories independently gathered by the clinical arch support technician and the remaining scribed note accurately describes my personal service to the patient. Medical Decision Making: Problems: Moderate: 1+ chronic illnesses with change Data: Unique test(s) ordered: 1 Risk: Low: Low risk from testing/treatment Medical Decision Making Level: 3 - Low Juani Kovacs MD The documentation for this note was completed by Naida Najera (more content not included)... [facility] 07-01-2023 Note HNO ID: [id number] Author: Juani Kovacs MD Service: ? Author Type: Physician Type: Progress Notes Filed: 07/01/2023 6:15 PM Note Text: Chief Complaint Patient presents with: 6 Month Exam Immunizations: Flu vaccination HPI Juan Jose Shultz is a 73 year old male who presents here today for 6 month follow up. No bowel, Gi, or urinary issues. Taking Avodart 0.5 mg daily at bedtime for BPH, no nocturia. DEACON/Depression: Stable with Effexor 37.5 mg BID, Buspar 15 mg, half pill BID and Ativan 0.5 mg at night. Lipid: Tries to control with diet and exercise. Still bowling, playing tennis, and walking 2 days a week, golfing when able. Does not take any cholesterol medications. Pain: Osteoarthritis; Uses Naproxen 375 mg BID for arthritis pain in shoulders. Past medical history, appointments, medications, allergies reviewed. Previous Medical History PAST MEDICAL HISTORY Diagnosis Date Depressive disorder, not elsewhere classified Generalized anxiety disorder Anxiety, Generalized Generalized osteoarthrosis, unspecified site Impotence of organic origin Impotence Previous Surgical History PAST SURGICAL HISTORY Procedure Laterality Date ADENOIDECTOMY PRIMARY Adenoidectomy BLEPHAROPLASTY UPPER EYELID W/EXCESSIVE SKIN Bilateral 12/04/2021 COLONOSCOPY FLX DX W/COLLJ SPEC WHEN PFRMD 05/28/2003 Colonoscopy COLONOSCOPY FLX DX W/COLLJ SPEC WHEN PFRMD 08/11/2014 Colonoscopy SEPTOPLASTY/SUBMUCOUS RESECJ W/WO CARTILAGE GRF Septoplasty SPHINCTEROTOMY 06/29/2003 TONSILLECTOMY PRIMARY/SECONDARY Tonsillectomy VASECTOMY UNI/BI SPX W/POSTOP SEMEN EXAMS Family History FAMILY HISTORY Problem Relation Age of Onset other (ALS) Father Patient Allergies ALLERGIES Allergen Reactions Flomax [Tamsulosin * Intolerance profound light headed when standing Nortriptyline Intolerance urine outlet,light headed Wellbutrin [Bupropi* Intolerance anxiety Zoloft [Sertraline * Intolerance libido Current Medications Current Outpatient Medications on File Prior to Visit Medication Sig LORazepam (ATIVAN) 0.5 mg Take 1 tablet by mouth once daily for 90 days. Naproxen (EC-NAPROSYN) 375 mg TbEC Take 1 tablet by mouth twice daily with meals. busPIRone (BUSPAR) 15 mg tablet Take 0.5 tablets by mouth twice daily. dutasteride (AVODART) 0.5 mg capsule Take 1 capsule by mouth once daily. venlafaxine (EFFEXOR) 37.5 mg tablet TAKE 1 TABLET TWICE DAILY fluticasone (FLONASE) 50 mcg/actuation nasal spray Use 1 [place] in each nostril twice daily. loratadine (CLARITIN) 10 mg ORAL Tab Take one(1) tablet daily as needed for allergy symptoms. No current facility-administered medications on file prior to visit. Social History Social History Tobacco Use Smoking status: Former Smokeless tobacco: Never Tobacco comments: quit 25 years ago Vaping Use Vaping Use: Never used Substance Use Topics Alcohol use: Yes Comment: two beer daily Drug use: No EXAM: BP 120/76 Pulse 74 Resp 16 Wt 91 kg (200 lb 9.6 oz) BMI 27.98 kg/m? General Appearance: Well appearing, alert, in no acute distress, well-hydrated, well nourished.. Lungs: Lungs clear to auscultation. No wheezing, rhonchi, rales.. Heart: RRR without murmur, gallop, or rubs. No ectopy. Health Maintenance List RSV Vaccine(1 - 1-dose 60+ series) Never done Advance Directive Discussion Never done Influenza Vaccine(1) due on 04/26/2023 Covid-19 Vaccine(2022- season) due on 04/26/2023 Colorectal Cancer Screening due on 08/11/2024 DTaP,Tdap,Td Vaccine(2 - Td or Tdap) due on 05/31/2025 Diabetes Screening due on 06/24/2026 Lipid Screening due on 06/24/2028 Abdominal Aortic Aneurysm Screening Completed Hepatitis C Screening Completed Shingrix Vaccine Completed Pneumococcal Vaccine: 65+ Completed Data reviewed Appointment on 06/24/2023 Component Date Value Protein, Total 06/24/2023 6.3 Albumin 06/24/2023 3.9 Calcium, Total 06/24/2023 9.0 Bilirubin, Total 06/24/2023 0.6 Alkaline Phosphatase 06/24/2023 62 AST 06/24/2023 23 ALT 06/24/2023 14 Glucose 06/24/2023 85 BUN 06/24/2023 17 Creatinine 06/24/2023 1.04 Sodium 06/24/2023 142 Potassium 06/24/2023 4.3 Chloride 06/24/2023 106 (H) CO2 06/24/2023 28 Anion Gap 06/24/2023 8 (L) Estimated Glomerular Bin* 06/24/2023 75 Cholesterol, Total 06/24/2023 185 Triglyceride 06/24/2023 125 HDL Cholesterol 06/24/2023 47 Non HDL Cholesterol 06/24/2023 138 (H) Fasting Time 06/24/2023 13 VLDL Cholesterol 06/24/2023 25 TC:HDL Ratio 06/24/2023 3.94 LDL Cholesterol 06/24/2023 113 (H) LDL:HDL Ratio 06/24/2023 2.40 PSA 06/24/2023 0.75 ASSESSMENT/PLAN: 1. Mixed hyperlipidemia - ICD9: 272.2, ICD10: E78.2 (primary diagnosis) - Controlled - Counseled on healthy diet and regular exercise - Discussed need for and benefit of weight loss. BMI 27.98 kg/(m2) 2. Need for influenza vaccination - ICD9: V04.81, ICD10: Z23 - INFLUENZA VACC (more content not included)... [facility] 07-01-2023 History of Presen t illness Narrative Chief Complaint Patient presents with: 6 Month Exam Immunizations: Flu vaccination HPI Juan Jose Shultz is a 73 year old male who presents here today for 6 month follow up. No bowel, Gi, or urinary issues. Taking Avodart 0.5 mg daily at bedtime for BPH, no nocturia. DEACON/Depression: Stable with Effexor 37.5 mg BID, Buspar 15 mg, half pill BID and Ativan 0.5 mg at night. Lipid: Tries to control with diet and exercise. Still bowling, playing tennis, and walking 2 days a week, golfing when able. Does not take any cholesterol medications. Pain: Osteoarthritis; Uses Naproxen 375 mg BID for arthritis pain in shoulders. Past medical history, appointments, medications, allergies reviewed. Previous Medical History PAST MEDICAL HISTORY Diagnosis Date Depressive disorder, not elsewhere classified Generalized anxiety disorder Anxiety, Generalized Generalized osteoarthrosis, unspecified site Impotence of organic origin Impotence Previous Surgical History PAST SURGICAL HISTORY Procedure Laterality Date ADENOIDECTOMY PRIMARY <AGE 11 Adenoidectomy BLEPHAROPLASTY UPPER EYELID W/EXCESSIVE SKIN Bilateral 12/04/2021 COLONOSCOPY FLX DX W/COLLJ SPEC WHEN PFRMD 05/28/2003 Colonoscopy COLONOSCOPY FLX DX W/COLLJ SPEC WHEN PFRMD 08/11/2014 Colonoscopy SEPTOPLASTY/SUBMUCOUS RESECJ W/WO CARTILAGE GRF Septoplasty SPHINCTEROTOMY 06/29/2003 TONSILLECTOMY PRIMARY/SECONDARY <AGE 11 Tonsillectomy VASECTOMY UNI/BI SPX W/POSTOP SEMEN EXAMS Family History FAMILY HISTORY Problem Relation Age of Onset other (ALS) Father Patient Allergies ALLERGIES Allergen Reactions Flomax [Tamsulosin * Intolerance profound light headed when standing Nortriptyline Intolerance urine outlet,light headed Wellbutrin [Bupropi* Intolerance anxiety Zoloft [Sertraline * Intolerance libido Current Medications Current Outpatient Medications on File Prior to Visit Medication Sig LORazepam (ATIVAN) 0.5 mg Take 1 tablet by mouth once daily for 90 days. Naproxen (EC-NAPROSYN) 375 mg TbEC Take 1 tablet by mouth twice daily with meals. busPIRone (BUSPAR) 15 mg tablet Take 0.5 tablets by mouth twice daily. dutasteride (AVODART) 0.5 mg capsule Take 1 capsule by mouth once daily. venlafaxine (EFFEXOR) 37.5 mg tablet TAKE 1 TABLET TWICE DAILY fluticasone (FLONASE) 50 mcg/actuation nasal spray Use 1 [place] in each nostril twice daily. loratadine (CLARITIN) 10 mg ORAL Tab Take one(1) tablet daily as needed for allergy symptoms. No current facility-administered medications on file prior to visit. Social History Social History Tobacco Use Smoking status: Former Smokeless tobacco: Never Tobacco comments: quit 25 years ago Vaping Use Vaping Use: Never used Substance Use Topics Alcohol use: Yes Comment: two beer daily Drug use: No EXAM: BP 120/76 Pulse 74 Resp 16 Wt 91 kg (200 lb 9.6 oz) BMI 27.98 kg/m General Appearance: Well appearing, alert, in no acute distress, well-hydrated, well nourished.. Lungs: Lungs clear to auscultation. No wheezing, rhonchi, rales.. Heart: RRR without murmur, gallop, or rubs. No ectopy. Health Maintenance List RSV Vaccine(1 - 1-dose 60+ series) Never done Advance Directive Discussion Never done Influenza Vaccine(1) due on 04/26/2023 Covid-19 Vaccine(2022- season) due on 04/26/2023 Colorectal Cancer Screening due on 08/11/2024 DTaP,Tdap,Td Vaccine(2 - Td or Tdap) due on 05/31/2025 Diabetes Screening due on 06/24/2026 Lipid Screening due on 06/24/2028 Abdominal Aortic Aneurysm Screening Completed Hepatitis C Screening Completed Shingrix Vaccine Completed Pneumococcal Vaccine: 65+ Completed Data reviewed Appointment on 06/24/2023 Component Date Value Protein, Total 06/24/2023 6.3 Albumin 06/24/2023 3.9 Calcium, Total 06/24/2023 9.0 Bilirubin, Total 06/24/2023 0.6 Alkaline Phosphatase 06/24/2023 62 AST 06/24/2023 23 ALT 06/24/2023 14 Glucose 06/24/2023 85 BUN 06/24/2023 17 Creatinine 06/24/2023 1.04 Sodium 06/24/2023 142 Potassium 06/24/2023 4.3 Chloride 06/24/2023 106 (H) CO2 06/24/2023 28 Anion Gap 06/24/2023 8 (L) Estimated Glomerular Bin* 06/24/2023 75 Cholesterol, Total 06/24/2023 185 Triglyceride 06/24/2023 125 HDL Cholesterol 06/24/2023 47 Non HDL Cholesterol 06/24/2023 138 (H) Fasting Time 06/24/2023 13 VLDL Cholesterol 06/24/2023 25 TC:HDL Ratio 06/24/2023 3.94 LDL Cholesterol 06/24/2023 113 (H) LDL:HDL Ratio 06/24/2023 2.40 PSA 06/24/2023 0.75 ASSESSMENT/PLAN: 1. Mixed hyperlipidemia - ICD9: 272.2, ICD10: E78.2 (primary diagnosis) - Controlled - Counseled on healthy diet and regular exercise - Discussed need for and benefit of weight loss. BMI 27.98 kg/(m^2) 2. Need for influenza vaccination - ICD9: V04.81, ICD10: Z23 - INFLUENZA VACCINE, PRSV FREE, AGE 65+ YR, HIGH DOSE, QUADRIVALENT (FLUZONE HIGH-DOSE) 3. Need for vaccination - ICD9: V05.9, ICD10: Z23 - INFLUENZA VACCINE, PRSV FREE, AGE 65+ YR, HIGH DOSE, QUADRIVALENT (FLUZONE HIGH-DOSE) - [employer] COVID-19 VACCINE (2022- [place]) AGE 12+ YR 4. BPH with urinary obstruction - ICD9: 600.01, 599.69, ICD10: N40.1, N13.8 Stable Continue current medications. 5. Mild episode of recurrent major depressive disorder (HCC) - ICD9: 296.31, ICD10: F33.0 Stable Continue current medications. 6. Generalized anxiety disorder - ICD9: 300.02, ICD10: F41.1 Stable Continue current medications. 7. Primary osteoarthritis involving multiple joints - ICD9: 715.98, ICD10: M15.9 Controlled Continue current medications. Follow up in 6 months. Fasting labs once a year, will be due in Jun 2024. I agree with the Chief Complaint, ROS, and Past Histories independently gathered by the clinical arch support technician and the remaining scribed note accurately describes my personal service to the patient. Medical Decision Making: Problems: Moderate: 2+ stable chronic illnesses Data: Unique test result(s) reviewed: 2 Unique test(s) ordered: 2 Risk: Moderate: Drug management Medical Decision Making Level: 4 - Moderate Juani Kovacs MD The documentation for this note was completed by Meredith Lopez Ma acting as scribe for Juani Kovacs MD. July 01, 2023 1:38 PM. Meredith Lopez Ma documented in this encounter [facility] 06-20-2023 Miscellaneous Notes Spoke with pt and information listed below given. Pt verbalizes understanding. Amber Jacobson LPN OK to refill as ordered Juani Kovacs MD Patient has been identified by name and date of : Yes, Provider Dr. Kovacs Date 06/20/23 Time 8:51 am Patient phones for refill(s): Requested Prescriptions Pending Prescriptions Disp Refills LORazepam (ATIVAN) 0.5 mg 90 tablet 0 Sig: Take 1 tablet by mouth once daily for 90 days. Date of last office visit in primary care: 12/25/2022 Date of next office visit in primary care: 07/01/2023 Last 2 Encounter Wt Readings: Date: Wt: 12/25/2022 90.3 kg (199 lb) 07/11/2022 91.3 kg (201 lb 3.2 oz) Previous labs/tests for medication: Not applicable Thank you. Amber Jacobson LPN. documented in this encounter [facility] 03-21-2023 Miscellaneous Notes Approved. PDMP website checked and validated. All prescriptions have been APPROPRIATELY filled. No suspicious activity was identified. 03/21/2023 by Fili Jensen APRN.CNP The following approved medication requests have been transmitted electronically. Requested Prescriptions Signed Prescriptions Disp Refills LORazepam (ATIVAN) 0.5 mg 90 tablet 0 Sig: Take 1 tablet by mouth once daily for 90 days. Authorizing Provider: FILI JENSEN APRN.CNP Patient phones requesting refills as follows: Requested Prescriptions Pending Prescriptions Disp Refills LORazepam (ATIVAN) 0.5 mg 90 tablet 0 Sig: Take 1 tablet by mouth once daily for 90 days. TARAS-12/25/22 Labs-06/01/22 NOV-07/01/23 Please review and advise. Blanka Ibanez LPN documented in this encounter [facility] 01-03-2023 Miscellaneous Notes OK to refill as ordered Juani Kovacs MD Patient has been identified by name and date of : Yes Requested Prescriptions Pending Prescriptions Disp Refills busPIRone (BUSPAR) 15 mg tablet 90 tablet 3 Sig: Take 0.5 tablets by mouth twice daily. RX INSTRUCTIONS: Patient aware RX will be sent to pharmacy. No need to notify patient. Julia Kincaid MA [facility] 06/2022 Nov 06/2023 Last refill; 12/2021 documented in this encounter [facility] 12-25-2022 Note HNO ID: [id number] Author: Juani Kovacs MD Service: ? Author Type: Physician Type: Progress Notes Filed: 12/25/2022 11:48 AM Note Text: Chief Complaint Patient presents with: F/U 6 Month HPI Juan Jose Shultz is a 72 year old male who presents here today for a 6 month follow up. Pt here today for a follow up. Was in [facility] at the end of October, beginning of November. Will be going to take in [place]. Was seen in September virtually for Covid, states he's doing well at this time. GI/Uro - Denies any stomach or bowel issues. Takes Avodart 0.5 mg once daily for BPH. Notes weaker stream. No nocturia. Lipids - On no current medication, tries to control with diet, but has not done real well. Exercises by bowling twice a week, play tennis twice a week and walking. In the summer he starts golfing almost daily, has went out 5-6 x so far. Asking about carotid/aorta US he had completed in 2021 showing mild to moderate stenosis. He was told this was insignificant, but wondering if this should be concerning. DEACON/Depression: Stable on current regimen. Seems to do worse during the winter months. Had a bad week this spring due to it being so chopra . Uses Ativan 0.5 mg every night to help him sleep. Is also taking Effexor 37.5 mg BID and Buspar 15 mg half pill BID. Allergies - using Flonase. Tends to have increased sinus issues in spring, summer and fall. Has done well at current time. Will use prn Loratadine 10 mg. Pain - Arthritis pain in shoulder and other aches and pains, but doing well at this time. Asking about an enteric coated Naproxen. Does use Naproxen EC 375 mg bid. Since changing over to the enteric coated tablet he's not had an GI issues. When he previously used just regular Naproxen this caused GI upset and he did use a PPI to help. HM - Has Adv Dir/Living Will. Past medical history, appointments, medications, allergies reviewed. Previous Medical History PAST MEDICAL HISTORY Diagnosis Date Depressive disorder, not elsewhere classified Generalized anxiety disorder Anxiety, Generalized Generalized osteoarthrosis, unspecified site Impotence of organic origin Impotence Previous Surgical History PAST SURGICAL HISTORY Procedure Laterality Date ADENOIDECTOMY PRIMARY Adenoidectomy BLEPHAROPLASTY UPPER EYELID W/EXCESSIVE SKIN Bilateral 12/04/2021 COLONOSCOPY FLX DX W/COLLJ SPEC WHEN PFRMD 05/28/2003 Colonoscopy COLONOSCOPY FLX DX W/COLLJ SPEC WHEN PFRMD 08/11/2014 Colonoscopy SEPTOPLASTY/SUBMUCOUS RESECJ W/WO CARTILAGE GRF Septoplasty SPHINCTEROTOMY 06/29/2003 TONSILLECTOMY PRIMARY/SECONDARY Tonsillectomy VASECTOMY UNI/BI SPX W/POSTOP SEMEN EXAMS Family History FAMILY HISTORY Problem Relation Age of Onset other (ALS) Father Patient Allergies ALLERGIES Allergen Reactions Flomax [Tamsulosin * Intolerance profound light headed when standing Nortriptyline Intolerance urine outlet,light headed Wellbutrin [Bupropi* Intolerance anxiety Zoloft [Sertraline * Intolerance libido Current Medications Current Outpatient Medications on File Prior to Visit Medication Sig LORazepam (ATIVAN) 0.5 mg Take 1 tablet by mouth once daily for 90 days. dutasteride (AVODART) 0.5 mg capsule Take 1 capsule by mouth once daily. venlafaxine (EFFEXOR) 37.5 mg tablet TAKE 1 TABLET TWICE DAILY fluticasone (FLONASE) 50 mcg/actuation nasal spray Use 1 [place] in each nostril twice daily. Naproxen (EC-NAPROSYN) 375 mg TbEC Take 1 tablet by mouth twice daily with meals. busPIRone (BUSPAR) 15 mg tablet Take 0.5 tablets by mouth twice daily. loratadine (CLARITIN) 10 mg ORAL Tab Take one(1) tablet daily as needed for allergy symptoms. No current facility-administered medications on file prior to visit. Social History Social History Tobacco Use Smoking status: Former Smokeless tobacco: Never Tobacco comments: quit 25 years ago Vaping Use Vaping Use: Never used Substance Use Topics Alcohol use: Yes Comment: two beer daily Drug use: No EXAM: BP 118/78 (BP Site: Left Arm, BP Position: Sitting, BP Cuff Size: Regular Adult) Pulse 82 Resp 16 Wt 90.3 kg (199 lb) BMI 27.75 kg/m? General Appearance: Well appearing, alert, in no acute distress, well-hydrated, well nourished.. Lungs: Lungs clear to auscultation. No wheezing, rhonchi, rales.. Heart: RRR without murmur, gallop, or rubs. No ectopy. Health Maintenance List ADVANCE DIRECTIVE DISCUSSION Never done COLORECTAL CANCER SCREENING due on 08/11/2024 DTAP,TDAP,TD(2 - Td or Tdap) due on 05/31/2025 DIABETES SCREEN due on 06/01/2025 LIPID SCREEN due on 06/01/2027 ABDOMINAL AORTIC ANEURYSM SCREENING Completed INFLUENZA Completed HEPATITIS C SCREENING Completed SHINGRIX VACCINE Completed COVID-19 VACCINE Completed PNEUMOCOCCAL: 65+ Completed Data reviewed None ASSESSMENT/PLAN: 1. Generalized anxiety disorder - ICD9: 300.02, ICD10: F41.1 (primary diagnosis) (more content not included)... [facility] 12-25-2022 History of Presen t illness Narrative Chief Complaint Patient presents with: F/U 6 Month HPI Juan Jose Shultz is a 72 year old male who presents here today for a 6 month follow up. Pt here today for a follow up. Was in [facility] at the end of October, beginning of November. Will be going to take in [place]. Was seen in September virtually for Covid, states he's doing well at this time. GI/Uro - Denies any stomach or bowel issues. Takes Avodart 0.5 mg once daily for BPH. Notes weaker stream. No nocturia. Lipids - On no current medication, tries to control with diet, but has not done real well. Exercises by bowling twice a week, play tennis twice a week and walking. In the summer he starts golfing almost daily, has went out 5-6 x so far. Asking about carotid/aorta US he had completed in 2021 showing mild to moderate stenosis. He was told this was insignificant, but wondering if this should be concerning. DEACON/Depression: Stable on current regimen. Seems to do worse during the winter months. Had a bad week this spring due to it being so chopra . Uses Ativan 0.5 mg every night to help him sleep. Is also taking Effexor 37.5 mg BID and Buspar 15 mg half pill BID. Allergies - using Flonase. Tends to have increased sinus issues in spring, summer and fall. Has done well at current time. Will use prn Loratadine 10 mg. Pain - Arthritis pain in shoulder and other aches and pains, but doing well at this time. Asking about an enteric coated Naproxen. Does use Naproxen EC 375 mg bid. Since changing over to the enteric coated tablet he's not had an GI issues. When he previously used just regular Naproxen this caused GI upset and he did use a PPI to help. HM - Has Adv Dir/Living Will. Past medical history, appointments, medications, allergies reviewed. Previous Medical History PAST MEDICAL HISTORY Diagnosis Date Depressive disorder, not elsewhere classified Generalized anxiety disorder Anxiety, Generalized Generalized osteoarthrosis, unspecified site Impotence of organic origin Impotence Previous Surgical History PAST SURGICAL HISTORY Procedure Laterality Date ADENOIDECTOMY PRIMARY <AGE 11 Adenoidectomy BLEPHAROPLASTY UPPER EYELID W/EXCESSIVE SKIN Bilateral 12/04/2021 COLONOSCOPY FLX DX W/COLLJ SPEC WHEN PFRMD 05/28/2003 Colonoscopy COLONOSCOPY FLX DX W/COLLJ SPEC WHEN PFRMD 08/11/2014 Colonoscopy SEPTOPLASTY/SUBMUCOUS RESECJ W/WO CARTILAGE GRF Septoplasty SPHINCTEROTOMY 06/29/2003 TONSILLECTOMY PRIMARY/SECONDARY <AGE 11 Tonsillectomy VASECTOMY UNI/BI SPX W/POSTOP SEMEN EXAMS Family History FAMILY HISTORY Problem Relation Age of Onset other (ALS) Father Patient Allergies ALLERGIES Allergen Reactions Flomax [Tamsulosin * Intolerance profound light headed when standing Nortriptyline Intolerance urine outlet,light headed Wellbutrin [Bupropi* Intolerance anxiety Zoloft [Sertraline * Intolerance libido Current Medications Current Outpatient Medications on File Prior to Visit Medication Sig LORazepam (ATIVAN) 0.5 mg Take 1 tablet by mouth once daily for 90 days. dutasteride (AVODART) 0.5 mg capsule Take 1 capsule by mouth once daily. venlafaxine (EFFEXOR) 37.5 mg tablet TAKE 1 TABLET TWICE DAILY fluticasone (FLONASE) 50 mcg/actuation nasal spray Use 1 [place] in each nostril twice daily. Naproxen (EC-NAPROSYN) 375 mg TbEC Take 1 tablet by mouth twice daily with meals. busPIRone (BUSPAR) 15 mg tablet Take 0.5 tablets by mouth twice daily. loratadine (CLARITIN) 10 mg ORAL Tab Take one(1) tablet daily as needed for allergy symptoms. No current facility-administered medications on file prior to visit. Social History Social History Tobacco Use Smoking status: Former Smokeless tobacco: Never Tobacco comments: quit 25 years ago Vaping Use Vaping Use: Never used Substance Use Topics Alcohol use: Yes Comment: two beer daily Drug use: No EXAM: BP 118/78 (BP Site: Left Arm, BP Position: Sitting, BP Cuff Size: Regular Adult) Pulse 82 Resp 16 Wt 90.3 kg (199 lb) BMI 27.75 kg/m General Appearance: Well appearing, alert, in no acute distress, well-hydrated, well nourished.. Lungs: Lungs clear to auscultation. No wheezing, rhonchi, rales.. Heart: RRR without murmur, gallop, or rubs. No ectopy. Health Maintenance List ADVANCE DIRECTIVE DISCUSSION Never done COLORECTAL CANCER SCREENING due on 08/11/2024 DTAP,TDAP,TD(2 - Td or Tdap) due on 05/31/2025 DIABETES SCREEN due on 06/01/2025 LIPID SCREEN due on 06/01/2027 ABDOMINAL AORTIC ANEURYSM SCREENING Completed INFLUENZA Completed HEPATITIS C SCREENING Completed SHINGRIX VACCINE Completed COVID-19 VACCINE Completed PNEUMOCOCCAL: 65+ Completed Data reviewed None ASSESSMENT/PLAN: 1. Generalized anxiety disorder - ICD9: 300.02, ICD10: F41.1 (primary diagnosis) - Stable - Continue current medication regimen. 2. Mild episode of recurrent major depressive disorder (HCC) - ICD9: 296.31, ICD10: F33.0 - Stable - Continue current medication regimen. 3. Mixed hyperlipidemia - ICD9: 272.2, ICD10: E78.2 - Check labs - Diet/exercise 4. Arthralgia, unspecified joint - ICD9: 719.40, ICD10: M25.50 - Stable with use of medication 5. BPH with urinary obstruction - ICD9: 600.01, 599.69, ICD10: N40.1, N13.8 - Continue current medication regimen. 6 mo f/u with labs I agree with the Chief Complaint, ROS, and Past Histories independently gathered by the clinical arch support technician and the remaining scribed note accurately describes my personal service to the patient. Medical Decision Making: Problems: Moderate: 2+ stable chronic illnesses Data: Unique test(s) ordered: 3+ Risk: Moderate: Drug management Medical Decision Making Level: 4 - Moderate Juani Kovacs MD The documentation for this note was completed by Naida Rodriguez Ma acting as scribe for Juani Kovacs MD. December 25, 2022 10:12 AM. Naida Rodriguez Ma documented in this encounter [facility] 12-19-2022 Miscellaneous Notes Approved PDMP website checked and validated. All prescriptions have been APPROPRIATELY filled. No suspicious activity was identified. 12/19/2022 by Fili Jensen APRN.WELDER/FITTER The following approved medication requests have been transmitted electronically. Requested Prescriptions Signed Prescriptions Disp Refills LORazepam (ATIVAN) 0.5 mg 90 tablet 0 Sig: Take 1 tablet by mouth once daily for 90 days. Authorizing Provider: FILI JENSEN APRN.SO Patient phones requesting refills as follows: Requested Prescriptions Pending Prescriptions Disp Refills LORazepam (ATIVAN) 0.5 mg 90 tablet 0 Sig: Take 1 tablet by mouth once daily for 90 days. TARAS-10/05/22 Labs-06/01/22 NOV-12/31/21 med filled 09/19/22 Please review and advise. Blanka Ibanez LPN documented in this encounter [facility] 10-19-2022 Miscellaneous Notes The following approved medication requests have been transmitted electronically. Requested Prescriptions Pending Prescriptions Disp Refills dutasteride (AVODART) 0.5 mg capsule 90 capsule 3 Sig: Take 1 capsule by mouth once daily. Fili Jensen APRN.SO Patient has been identified by name and date of : Yes Requested Prescriptions Pending Prescriptions Disp Refills dutasteride (AVODART) 0.5 mg capsule 90 capsule 3 Sig: Take 1 capsule by mouth once daily. RX INSTRUCTIONS: Patient aware RX will be sent to pharmacy. No need to notify patient. Scheduled 01/10/23. Nadia Rob LPN documented in this encounter [facility] 10-05-2022 Note HNO ID: [id number] Author: Fili Jensen APRN.CNP Service: ? Author Type: Nurse Practitioner Type: Progress Notes Filed: 10/05/2022 12:02 PM Note Text: Telemedicine Visit - Distance Health Virtual Visit Note Patient seen on Telephone platform. Unable to do a virtual, had difficulty with logging in. Location of patient: [place] Juani Kovacs MD History of Present Illness Juan Jose Shultz is a 72 year old year old male who presents for COVID-19 infection. Symptoms started Saturday. Including nasal congestion, cough, sinus pressure. Had a fever yesterday. Home positive COVID-19 testing. Would like to discuss paxlovid treatment. No chest pain, shortness of breath, syncope. PAST MEDICAL HISTORY Diagnosis Date Depressive disorder, not elsewhere classified Generalized anxiety disorder Anxiety, Generalized Generalized osteoarthrosis, unspecified site Impotence of organic origin Impotence PAST SURGICAL HISTORY Procedure Laterality Date ADENOIDECTOMY PRIMARY Adenoidectomy BLEPHAROPLASTY UPPER EYELID W/EXCESSIVE SKIN Bilateral 12/04/2021 COLONOSCOPY FLX DX W/COLLJ SPEC WHEN PFRMD 05/28/2003 Colonoscopy COLONOSCOPY FLX DX W/COLLJ SPEC WHEN PFRMD 08/11/2014 Colonoscopy SEPTOPLASTY/SUBMUCOUS RESECJ W/WO CARTILAGE GRF Septoplasty SPHINCTEROTOMY 06/29/2003 TONSILLECTOMY PRIMARY/SECONDARY Tonsillectomy VASECTOMY UNI/BI SPX W/POSTOP SEMEN EXAMS FAMILY HISTORY Problem Relation Age of Onset other (ALS) Father Social History Tobacco Use Smoking status: Former Smokeless tobacco: Never Tobacco comments: quit 25 years ago Vaping Use Vaping Use: Never used Substance Use Topics Alcohol use: Yes Comment: two beer daily Drug use: No Current Outpatient Medications Medication Sig LORazepam (ATIVAN) 0.5 mg Take 1 tablet by mouth once daily for 90 days. venlafaxine (EFFEXOR) 37.5 mg tablet TAKE 1 TABLET TWICE DAILY fluticasone (FLONASE) 50 mcg/actuation nasal spray Use 1 [place] in each nostril twice daily. Naproxen (EC-NAPROSYN) 375 mg TbEC Take 1 tablet by mouth twice daily with meals. busPIRone (BUSPAR) 15 mg tablet Take 0.5 tablets by mouth twice daily. dutasteride (AVODART) 0.5 mg capsule Take 1 capsule by mouth once daily. loratadine (CLARITIN) 10 mg ORAL Tab Take one(1) tablet daily as needed for allergy symptoms. No current facility-administered medications for this visit. ALLERGIES Allergen Reactions Flomax [Tamsulosin * Intolerance profound light headed when standing Nortriptyline Intolerance urine outlet,light headed Wellbutrin [Bupropi* Intolerance anxiety Zoloft [Sertraline * Intolerance libido Exam: No video. Speaking in full sentences, laughing at times. ASSESSMENT/PLAN: 1. COVID-19 - ICD9: 079.89, ICD10: U07.1 - Discuss benefits and risk of Paxlovid. Discussed that this medication is under EUA and his need to report any side effects. Discussed need to go to the hospital for difficulty breathing. - NIRMATRELVIR 300 MG (150 MG X2)-RITONAVIR 100 MG TABLET,DOSE PACK(EUA) PLAN: - Red flags discussed for need for in person care - All questions answered Fili Jensen APRN.SO I spent a total of 8 minutes on the date of the service which included preparing to see the patient, completing clinical documentation, obtaining and/or reviewing separately obtained history, counseling and educating the patient/family/caregiver, and ordering medications, tests, or procedures. If you let us know who your primary care provider is, we will send them a notification of today's visit through our electronic medical records system. Since not all providers have access to our notifications, we strongly encourage you to share the following record of today's visit with your primary care provider at your next visit. This will help in providing you the best care. If you do not have an established Primary Care physician and would like to continue care with a [facility] Virtual Primary Care physician, please ask your provider to place a Establish Primary Care order. Use [employer] to manage your care, wherever you are, 18/03, on your mobile device or computer. [employer] connects you to [employer] so you can access all your health information in one place and also schedule and request virtual appointments with primary care providers. Nirmatrelvir/Ritonavir (Paxlovid) Eligibility and Patient Discussion [facility] Formulary Restriction Criteria: Adult outpatients 18 years and older with ALL of the following: [x] Patient has positive SARS-COV-2 viral test (PCR or antigen test) during current illness [x] Patient has symptoms for 5 days or less [x] Not requiring hospitalization at any time for management of COVID-19 [x] Not requiring supplemental oxygen or a change in baseline supplemental oxygen [x] Not utilized for pre-exposure or post-exposure prophylaxis for prevention of COVID-19 [x] Patient does not have s (more content not included)... [facility] 07-11-2022 History of Presen t illness Narrative Chief Complaint Patient presents with: F/U 6 Month HPI Juan Jose Shultz is a 72 year old male who presents here today for 6 month follow up. No bowel, Gi, or urinary issues. Taking Avodart 0.5 mg daily for BPH. Does get up once a night to urinate but does drink a lot of water. Lipid: Tries to control cholesterol with diet and exercise. Feels this could improve, but tries to not over indulge. Hasn't been to the gym since last winter. Does have hobbies such as golf, tennis and bowling that he does weekly. Not taking any cholesterol medications. DEACON/Depression: Stable on current regimen. Seems to do worse during the winter months, this has not been too bad at this time. Uses Ativan 0.5 mg every night to help him sleep. Is also taking Effexor 37.5 mg BID and Buspar 15 mg half pill BID. Allergies - Requesting Rx of Flonase go to mail order. Tends to have increased sinus issues in spring, summer and fall. Has done well at current time. Will use prn Loratadine 10 mg. Pain - Arthritis pain in shoulder and other aches and pains. Asking about an enteric coated Naproxen. Does use Naproxen bid at times, but if using too much this causes GI upset. May need to use a PPI with medication. Tries to figure out what to do with his boredom with the weather changes. Will be helping do a bathroom remodel for his step-daughter. HM - Does have Adv Dir/Living will. Colonoscopy 10 year repeat, not due til 2023. Past medical history, appointments, medications, allergies reviewed. Previous Medical History PAST MEDICAL HISTORY Diagnosis Date Depressive disorder, not elsewhere classified Generalized anxiety disorder Anxiety, Generalized Generalized osteoarthrosis, unspecified site Impotence of organic origin Impotence Previous Surgical History PAST SURGICAL HISTORY Procedure Laterality Date ADENOIDECTOMY PRIMARY <AGE 11 Adenoidectomy BLEPHAROPLASTY UPPER EYELID W/EXCESSIVE SKIN Bilateral 12/04/2021 COLONOSCOPY FLX DX W/COLLJ SPEC WHEN PFRMD 05/28/2003 Colonoscopy COLONOSCOPY FLX DX W/COLLJ SPEC WHEN PFRMD 08/11/2014 Colonoscopy SEPTOPLASTY/SUBMUCOUS RESECJ W/WO CARTILAGE GRF Septoplasty SPHINCTEROTOMY 06/29/2003 TONSILLECTOMY PRIMARY/SECONDARY <AGE 11 Tonsillectomy VASECTOMY UNI/BI SPX W/POSTOP SEMEN EXAMS Family History FAMILY HISTORY Problem Relation Age of Onset other (ALS) Father Patient Allergies ALLERGIES Allergen Reactions Flomax [Tamsulosin * Intolerance profound light headed when standing Nortriptyline Intolerance urine outlet,light headed Wellbutrin [Bupropi* Intolerance anxiety Zoloft [Sertraline * Intolerance libido Current Medications Current Outpatient Medications on File Prior to Visit Medication Sig LORazepam (ATIVAN) 0.5 mg Take 1 tablet by mouth once daily for 90 days. busPIRone (BUSPAR) 15 mg tablet Take 0.5 tablets by mouth twice daily. dutasteride (AVODART) 0.5 mg capsule Take 1 capsule by mouth once daily. venlafaxine (EFFEXOR) 37.5 mg tablet Take 1 tablet by mouth twice daily. fluticasone (FLONASE) 50 mcg/actuation nasal spray Use 1 [place] in each nostril twice daily. loratadine (CLARITIN) 10 mg ORAL Tab Take one(1) tablet daily as needed for allergy symptoms. No current facility-administered medications on file prior to visit. Social History Social History Tobacco Use Smoking status: Former Smokeless tobacco: Never Tobacco comments: quit 25 years ago Vaping Use Vaping Use: Never used Substance Use Topics Alcohol use: Yes Comment: two beer daily Drug use: No EXAM: BP 132/84 (BP Site: Left Arm, BP Position: Sitting, BP Cuff Size: Regular Adult) Pulse 64 Resp 16 Wt 91.3 kg (201 lb 3.2 oz) BMI 28.06 kg/m General Appearance: Well appearing, alert, in no acute distress, well-hydrated, well nourished.. Lungs: Lungs clear to auscultation. No wheezing, rhonchi, rales.. Heart: RRR without murmur, gallop, or rubs. No ectopy. Health Maintenance List ADVANCE DIRECTIVE DISCUSSION Never done - Has this, not on file COLORECTAL CANCER SCREENING due on 07/11/2022 - Not due until 07/2024. DTAP,TDAP,TD(2 - Td or Tdap) due on 05/31/2025 DIABETES SCREEN due on 06/01/2025 LIPID SCREEN due on 06/01/2027 ABDOMINAL AORTIC ANEURYSM SCREENING Completed INFLUENZA Completed HEPATITIS C SCREENING Completed SHINGRIX VACCINE Completed COVID-19 VACCINE Completed PNEUMOCOCCAL: 65+ Completed Data reviewed Appointment on 06/01/2022 Component Date Value Protein, Total 06/01/2022 6.7 Albumin 06/01/2022 4.2 Calcium, Total 06/01/2022 9.4 Bilirubin, Total 06/01/2022 0.7 Alkaline Phosphatase 06/01/2022 59 AST 06/01/2022 31 ALT 06/01/2022 28 Glucose 06/01/2022 88 BUN 06/01/2022 16 Creatinine 06/01/2022 1.06 Sodium 06/01/2022 142 Potassium 06/01/2022 4.5 Chloride 06/01/2022 106 (A) CO2 06/01/2022 26 Anion Gap 06/01/2022 10 Estimated Glomerular Bin* 06/01/2022 74 Cholesterol, Total 06/01/2022 222 (A) Triglyceride 06/01/2022 106 HDL Cholesterol 06/01/2022 53 Non HDL Cholesterol 06/01/2022 169 (A) Fasting Time 06/01/2022 12 VLDL Cholesterol 06/01/2022 21 TC:HDL Ratio 06/01/2022 4.19 LDL Cholesterol 06/01/2022 148 (A) LDL:HDL Ratio 06/01/2022 2.79 (A) PSA 06/01/2022 0.79 ASSESSMENT/PLAN: 1. Generalized anxiety disorder - ICD9: 300.02, ICD10: F41.1 (primary diagnosis) - Stable - Declines increase in Effexor at certain time 2. Mild episode of recurrent major depressive disorder (HCC) - ICD9: 296.31, ICD10: F33.0 - As noted above. 3. Mixed hyperlipidemia - ICD9: 272.2, ICD10: E78.2 - suboptimal control - Encouraged following a low fat, low cholesterol diet. - Discussed the benefits of regular aerobic exercise and weight loss. 4. BPH with urinary obstruction - ICD9: 600.01, 599.69, ICD10: N40.1, N13.8 - Continue current medication regimen. 5. Arthralgia, unspecified joint - ICD9: 719.40, ICD10: M25.50 - Enteric coated 6 mo f/u with labs. I agree with the Chief Complaint, ROS, and Past Histories independently gathered by the clinical arch support technician and the remaining scribed note accurately describes my personal service to the patient. Medical Decision Making: Problems: Moderate: 2+ stable chronic illnesses Data: Unique test result(s) reviewed: 2 Risk: Moderate: Drug management Medical Decision Making Level: 4 - Moderate Juani Kovacs MD The documentation for this note was completed by Naida Rodriguez Ma acting as scribe for Juani Kovacs MD. July 11, 2022 2:54 PM. Naida Rodriguez Ma documented in this encounter [facility] 06-21-2022 Miscellaneous Notes Approved. PDMP website checked and validated. All prescriptions have been APPROPRIATELY filled. No suspicious activity was identified. 06/21/2022 by Fili Jensen APRN.CNP The following approved medication requests have been transmitted electronically. Requested Prescriptions Signed Prescriptions Disp Refills LORazepam (ATIVAN) 0.5 mg 90 tablet 0 Sig: Take 1 tablet by mouth once daily for 90 days. Authorizing Provider: FILI JENSEN APRN.CNP RX INSTRUCTIONS: Patient aware RX will be sent to pharmacy. No need to notify patient. Last OV: 01/08/22 with PCP Last refill: 03/26/22 With 90 and 0 refills Follow up: 07/11/22-6 month f/u with PCP Caity Mcnulty MA documented in this encounter [facility] 05-08-2022 Miscellaneous Notes Call to pt and notified him of below. He did contact Dr. Tracey's office who states he needs referral before anything can be scheduled. Pt notified that referral would be faxed to Dr. Tracey's office at [phone]. Pt noted he did not need ENT referral. Naida Rodriguez Ma I have placed a referral. I am not sure if he should be seeing an ENT specialist instead of a oral surgeon. Not sure if he has been in contact with Dr. Baron's office. Fili Jensen APRN.CNP Patient requesting referral to Dr. Tracey, oral surgeon. Patient states he has a lump in his tongue. Patient did not have fax or phone for provider. Please advise patient when referral has been sent. documented in this encounter [facility] 01-08-2022 History of Presen t illness Narrative Chief Complaint Patient presents with: F/U 6 Month HPI Juan Jose Shultz is a 71 year old male who presents here today for 6 month follow up. Pt here today for a 6 month follow up. Seen by Fili Jensen CNP on 11/06/21 for a pre-op exam for blephoplasty. Reports that surgery went well. GI/Uro - Denies any bowel, Gi, or urinary issues. Does get up once a night to urinate. Drinks a lot of water. Flows adequate. Taking Avodart 0.5 mg daily. DEACON/Depression: On current regimen of Effexor 37.5 mg BID, Buspar 15 mg taking 0.5 tab po BID and Lorazepam 0.5 mg once daily. Generally uses the Ativan nightly for sleep. Unsure if age related, he feels that he's more blah and lacking some motivation. Has to work himself up to get him to do something. Does admit to have SADD, feels that we haven't really gotten into Spring. Lipids - Currently on no medications at present time. Controls this with diet and lifestyle. Goes the gym, which he has to motivate himself to go. Pain - After going to the gym he will have spots located at his left shoulder or upper left pectoral pain that will last several weeks. Also having some right lateral hip discomfort, possibly coming from his back. May follow up with Sheyla Burch for these. Past medical history, appointments, medications, allergies reviewed. Previous Medical History PAST MEDICAL HISTORY Diagnosis Date Depressive disorder, not elsewhere classified Generalized anxiety disorder Anxiety, Generalized Generalized osteoarthrosis, unspecified site Impotence of organic origin Impotence Previous Surgical History PAST SURGICAL HISTORY Procedure Laterality Date ADENOIDECTOMY PRIMARY <AGE 11 Adenoidectomy COLONOSCOPY FLX DX W/COLLJ SPEC WHEN PFRMD 05/28/2003 Colonoscopy COLONOSCOPY FLX DX W/COLLJ SPEC WHEN PFRMD 08/11/2014 Colonoscopy SEPTOPLASTY/SUBMUCOUS RESECJ W/WO CARTILAGE GRF Septoplasty SPHINCTEROTOMY 06/29/2003 TONSILLECTOMY PRIMARY/SECONDARY <AGE 11 Tonsillectomy VASECTOMY UNI/BI SPX W/POSTOP SEMEN EXAMS Family History FAMILY HISTORY Problem Relation Age of Onset other (ALS) Father Patient Allergies ALLERGIES Allergen Reactions Flomax [Tamsulosin * Intolerance profound light headed when standing Nortriptyline Intolerance urine outlet,light headed Wellbutrin [Bupropi* Intolerance anxiety Zoloft [Sertraline * Intolerance libido Current Medications Current Outpatient Medications on File Prior to Visit Medication Sig LORazepam (ATIVAN) 0.5 mg take 1 tablet by mouth once daily venlafaxine (EFFEXOR) 37.5 mg tablet Take 1 tablet by mouth twice daily. busPIRone (BUSPAR) 15 mg tablet Take 1 tablet by mouth twice daily. dutasteride (AVODART) 0.5 mg capsule Take 1 capsule by mouth once daily. fluticasone (FLONASE) 50 mcg/actuation nasal spray Use 1 [place] in each nostril twice daily. loratadine (CLARITIN) 10 mg ORAL Tab Take one(1) tablet daily as needed for allergy symptoms. No current facility-administered medications on file prior to visit. Social History Social History Tobacco Use Smoking status: Former Smoker Smokeless tobacco: Never Used Tobacco comment: quit 25 years ago Vaping Use Vaping Use: Never used Substance Use Topics Alcohol use: Yes Comment: two beer daily Drug use: No EXAM: BP 134/82 (BP Site: Left Arm, BP Position: Sitting, BP Cuff Size: Regular Adult) Pulse 68 Resp 16 Wt 91.9 kg (202 lb 9.6 oz) BMI 28.26 kg/m General Appearance: Well appearing, alert, in no acute distress, well-hydrated, well nourished.. Lungs: Lungs clear to auscultation. No wheezing, rhonchi, rales.. Heart: RRR without murmur, gallop, or rubs. No ectopy. Musculoskeletal: Pain to palpitate at right shoulder/tendon area. Extremity: Notes hip pain, groin area with radiation down legs. Health Maintenance List ADVANCE DIRECTIVE DISCUSSION Never done COLORECTAL CANCER SCREENING due on 07/11/2022 DIABETES SCREEN due on 07/11/2024 DTAP,TDAP,TD(2 - Td or Tdap) due on 05/31/2025 LIPID SCREEN due on 07/11/2026 ABDOMINAL AORTIC ANEURYSM SCREENING Completed INFLUENZA Completed HEPATITIS C SCREENING Completed PNEUMOVAX AGE 65 AND OVER WITH 5YR LOOKBACK Completed SHINGRIX VACCINE Completed COVID-19 VACCINE Completed MENINGOCOCCAL CONJUGATE Aged Out Data reviewed None ASSESSMENT/PLAN: 1. Generalized anxiety disorder - ICD9: 300.02, ICD10: F41.1 (primary diagnosis) - Continue current medication regimen. - BUSPIRONE 15 MG TABLET 2. Mild episode of recurrent major depressive disorder (HCC) - ICD9: 296.31, ICD10: F33.0 - Continue current medication regimen. - BUSPIRONE 15 MG TABLET 3. Mixed hyperlipidemia - ICD9: 272.2, ICD10: E78.2 - Cont diet and exercise. - Currently on no medication. 4. BPH with urinary obstruction - ICD9: 600.01, 599.69, ICD10: N40.1, N13.8 - Stable on current regimen. - DUTASTERIDE 0.5 MG CAPSULE 5. Arthralgia, unspecified joint - ICD9: 719.40, ICD10: M25.50 - Pain located in L shoulder, Hip, Pelvic area down his legs. - Will f/u with [facility] to have his back checked out. 6 mo f/u with labs prior I agree with the Chief Complaint, ROS, and Past Histories independently gathered by the clinical arch support technician and the remaining scribed note accurately describes my personal service to the patient. Medical Decision Making: Problems: Moderate: 2+ stable chronic illnesses Data: Unique test(s) ordered: 2 Risk: Moderate: Drug management Medical Decision Making Level: 4 - Moderate Juani Kovacs MD The documentation for this note was completed by Naida Rodriguez Ma acting as scribe for Juani Kovacs MD. January 08, 2022 3:34 PM. Naida Rodriguez Ma documented in this encounter [facility] 12-22-2021 Miscellaneous Notes [facility]ved. [facility]. All prescriptions have been APPROPRIATELY filled. No suspicious activity was identified. 12/22/2021 by Fili Jensen APRN.CNP The following approved medication requests have been transmitted electronically. Signed Prescriptions Disp Refills LORazepam (ATIVAN) 0.5 mg 90 tablet 0 Sig: take 1 tablet by mouth once daily PARESH Class: C-IV BEVERLY: No Authorizing Provider: FILI JENSEN APRN.CNP Patient has been identified by name and date of : Yes Pharmacy phones for refill(s): Pending Prescriptions Disp Refills LORAZEPAM 0.5 MG TABLET 90 tablet Sig: take 1 tablet by mouth once daily PARESH Class: C-IV BEVERLY: Yes Date of last office visit in primary care: OV on 11/06/2021 Appointment scheduled for 01/08/2022 Last 2 Encounter Wt Readings: Date: Wt: 11/06/2021 91.2 kg (201 lb) 07/10/2021 92 kg (202 lb 14.4 oz) Please advise. Thank you. JERRY Segovia documented in this encounter [facility] documented as of this encounter (statuses as of 12/22/2021) [facility] History of Past illness Narrative* Problem Noted Date Resolved Date Welcome to Medicare preventive visit 08/05/2014 09/18/2016 Essential hypertension 6 documented as of this encounter (statuses as of 01/08/2022) [facility] History of Past illness Narrative* Problem Noted Date Resolved Date Welcome to Medicare preventive visit 08/05/2014 09/18/2016 Essential hypertension 6 documented as of this encounter (statuses as of 05/08/2022) [facility] History of Past illness Narrative* Problem Noted Date Resolved Date Welcome to Medicare preventive visit 08/05/2014 09/18/2016 Essential hypertension 6 documented as of this encounter (statuses as of 06/21/2022) [facility] History of Past illness Narrative* Problem Noted Date Resolved Date Welcome to Medicare preventive visit 08/05/2014 09/18/2016 Essential hypertension 6 documented as of this encounter (statuses as of 07/12/2022) [facility] of Past illness Narrative* Problem Noted Date Resolved Date Welcome to Medicare preventive visit 08/05/2014 09/18/2016 Essential hypertension 6 documented as of this encounter (statuses as of 10/19/2022) [facility] of Past illness Narrative* Problem Noted Date Resolved Date Welcome to Medicare preventive visit 08/05/2014 09/18/2016 Essential hypertension 6 documented as of this encounter (statuses as of 12/19/2022) [facility] History of Past illness Narrative* Problem Noted Date Resolved Date Welcome to Medicare preventive visit 08/05/2014 09/18/2016 Essential hypertension 6 documented as of this encounter (statuses as of 12/25/2022) [facility] History of Past illness Narrative* Problem Noted Date Resolved Date Welcome to Medicare preventive visit 08/05/2014 09/18/2016 Essential hypertension 6 documented as of this encounter (statuses as of 01/03/2023) [facility] of Past illness Narrative* Problem Noted Date Diagnosed Date Resolved Date Welcome to Medicare preventive visit 08/05/2014 09/18/2016 Essential hypertension 08/16 documented as of this encounter (statuses as of 03/21/2023) [facility] of Past illness Narrative* Problem Noted Date Diagnosed Date Resolved Date Welcome to Medicare preventive visit 08/05/2014 09/18/2016 Essential hypertension 08/16 documented as of this encounter (statuses as of 06/20/2023) [facility] of Past illness Narrative* Problem Noted Date Diagnosed Date Resolved Date Welcome to Medicare preventive visit 08/05/2014 09/18/2016 Essential hypertension 08/16 documented as of this encounter (statuses as of 07/02/2023) [facility] of Past illness Narrative* Problem Noted Date Diagnosed Date Resolved Date Welcome to Medicare preventive visit 08/05/2014 09/18/2016 Mild episode of recurrent ma clement depressive disorder 03/13/2006 09/17/2023 Essential hypertension 08/16 documented as of this encounter (statuses as of 09/26/2023) [facility] of Past illness Narrative* Problem Noted Date Diagnosed Date Resolved Date Welcome to Medicare preventive visit 08/05/2014 09/18/2016 Mild episode of recurrent ma clement depressive disorder 03/13/2006 09/17/2023 Essential hypertension 08/16 documented as of this encounter (statuses as of 10/10/2023) [facility] Generalized anxiety disorder [facility] Diagnosis Generalized anxiety disorder- Primary Mild episode of recurrent major depressive disorder (HCC) Mixed hyperlipidemia BPH with urinary obstruction Hypertrophy of prostate with urinary obstruction and other lower urinary tract symptoms (LUTS) Arthralgia, unspecified joint [facility] Diagnosis Tongue lesion- Primary Other specified conditions of the tongue [facility] Diagnosis Generalized anxiety disorder [facility] Diagnosis Generalized anxiety disorder- Primary Mild episode of recurrent major depressive disorder (HCC) Mixed hyperlipidemia BPH with urinary obstruction Hypertrophy of prostate with urinary obstruction and other lower urinary tract symptoms (LUTS) Arthralgia, unspecified joint [facility] Diagnosis BPH with urinary obstruction Hypertrophy of prostate with urinary obstruction and other lower urinary tract symptoms (LUTS) [facility] Diagnosis Generalized anxiety disorder [facility] Diagnosis Mild episode of recurrent major depressive disorder (HCC)- Primary Generalized anxiety disorder Mixed hyperlipidemia Arthralgia, unspecified joint BPH with urinary obstruction Hypertrophy of prostate with urinary obstruction and other lower urinary tract symptoms (LUTS) [facility] Diagnosis Generalized anxiety disorder Mild episode of recurrent major depressive disorder (HCC) [facility] Diagnosis Generalized anxiety disorder [facility] Diagnosis Generalized anxiety disorder documented in this encounter [facility] note* Diagnosis Mild episode of recurrent major depressive disorder (HCC)- Primary Need for influenza vaccination Need for prophylactic vaccination and inoculation against influenza Need for vaccination Need for prophylactic vaccination and inoculation against unspecified single disease Mixed hyperlipidemia BPH with urinary obstruction Hypertrophy of prostate with urinary obstruction and other lower urinary tract symptoms (LUTS) Generalized anxiety disorder Primary osteoarthritis involving multiple joints documented in this encounter [facility] note* Diagnosis BPH with urinary obstruction Hypertrophy of prostate with urinary obstruction and other lower urinary tract symptoms (LUTS) documented in this encounter [facility] Reason for Referral Specialty Diagnoses / Procedures Referred By Franko wilder Referred To Contact Dentistry Diagnoses Tongue lesion Procedures CONSULT TO DENTISTRY OFFICE/OUTPATIENT [facility] 60-74 MINUTES Fili Jensen APRN.WELDER/FITTER [address] [place] [address] Referral ID Status Reason Start Date Expiration Date Visits Requested Visits Authorized [id number] Pending Review PCP Requested Referral 05/08/2022 05/08/2023 1 1 Summary Purpose Family History No Family History Records Found Advance Directives No Advanced Directives Records Found Additional Source Comments Source Comments (unrecognize d section and content) In the event this informatio n is protected by the Federal Confidentiality of Alcohol and Drug Abuse Patient Records regulations: The Federal rules restrict any use of the information to criminally investigate or prosecute any alcohol or drug abuse patient.[facility] the event this information is protected by the Federal Confidentiality of Alcohol and Drug Abuse Patient Records regulations: The Federal rules restrict any use of the information to criminally investigate or prosecute any alcohol or drug abuse patient.[facility] the event this information is protected by the Federal Confidentiality of Alcohol and Drug Abuse Patient Records regulations: The Federal rules restrict any use of the information to criminally investigate or prosecute any alcohol or drug abuse patient.[facility] the event this information is protected by the Federal Confidentiality of Alcohol and Drug Abuse Patient Records regulations: The Federal rules restrict any use of the information to criminally investigate or prosecute any alcohol or drug abuse patient.[facility] the event this information is protected by the Federal Confidentiality of Alcohol and Drug Abuse Patient Records regulations: The Federal rules restrict any use of the information to criminally investigate or prosecute any alcohol or drug abuse patient.[facility] the event this information is protected by the Federal Confidentiality of Alcohol and Drug Abuse Patient Records regulations: The Federal rules restrict any use of the information to criminally investigate or prosecute any alcohol or drug abuse patient.[facility] the event this information is protected by the Federal Confidentiality of Alcohol and Drug Abuse Patient Records regulations: The Federal rules restrict any use of the information to criminally investigate or prosecute any alcohol or drug abuse patient.[facility] the event this information is protected by the Federal Confidentiality of Alcohol and Drug Abuse Patient Records regulations: The Federal rules restrict any use of the information to criminally investigate or prosecute any alcohol or drug abuse patient.[facility] the event this information is protected by the Federal Confidentiality of Alcohol and Drug Abuse Patient Records regulations: The Federal rules restrict any use of the information to criminally investigate or prosecute any alcohol or drug abuse patient.[facility] the event this information is protected by the Federal Confidentiality of Alcohol and Drug Abuse Patient Records regulations: The Federal rules restrict any use of the information to criminally investigate or prosecute any alcohol or drug abuse patient.[facility] the event this information is protected by the Federal Confidentiality of Alcohol and Drug Abuse Patient Records regulations: The Federal rules restrict any use of the information to criminally investigate or prosecute any alcohol or drug abuse patient.[facility] the event this information is protected by the Federal Confidentiality of Alcohol and Drug Abuse Patient Records regulations: The Federal rules restrict any use of the information to criminally investigate or prosecute any alcohol or drug abuse patient.[facility] the event this information is protected by the Federal Confidentiality of Alcohol and Drug Abuse Patient Records regulations: The Federal rules restrict any use of the information to criminally investigate or prosecute any alcohol or drug abuse patient.[facility] the event this information is protected by the Federal Confidentiality of Alcohol and Drug Abuse Patient Records regulations: The Federal rules restrict any use of the information to criminally investigate or prosecute any alcohol or drug abuse patient.[facility] Reason for Visit (unrecogniz ed section and content) Reason Comments F/U 6 Month Reason Comments Referral Request Reason Onset Date Comments Refill Request 06/20/2022 Reason Onset Date Comments Refill Request 10/19/2022 Reason Onset Date Comments Refill Request 12/19/2022 Reason Onset Date Comments Refill Request 01/02/2023 Reason Onset Date Comments Refill Request 03/20/2023 Reason Onset Date Comments Refill Request 06/20/2023 Reason Onset Date Comments 6 Month Exam Immunizations 07/01/2023 Flu vaccination Reason Comments Forms [facility] Request OV notes and med list for sleep study Reason Onset Date Comments Refill Request 10/09/2023 Care Teams (unrecognized sec tion and content) Printing Supervisor Relationship Specialty Start Date End Date Juani Kovacs MD [address], [place] [phone] PCP - General Family Practice 11/07/16 Printing Supervisor Relationship Specialty Start Date End Date Juani Kovacs MD [address], [place] [id number] PCP - General Family Practice 11/07/16 Printing Supervisor Relationship Specialty Start Date End Date Juani Kovacs MD [address], [place] [phone] PCP - General Family Medicine 11/07/16 Printing Supervisor Relationship Specialty Start Date End Date Juani Kovacs MD [address] [facility] [address] PCP - General Family Medicine 11/07/16 Printing Supervisor Relationship Specialty Start Date End Date Juani Kovacs MD [address] [facility] [address] PCP - General Family Medicine 11/07/16 Printing Supervisor Relationship Specialty Start Date End Date Juani Kovacs MD [address] [facility] [address] PCP - General Family Medicine 11/07/16 Printing Supervisor Relationship Specialty Start Date End Date Juani Kovacs MD [address] [facility] [address] PCP - General Family Medicine 11/07/16 Printing Supervisor Relationship Specialty Start Date End Date Juani Kovacs MD [address] [facility] [address] PCP - General Family Medicine 11/07/16 Printing Supervisor Relationship Specialty Start Date End Date Juani Kovacs MD [address] [facility] [address] PCP - General Family Medicine 11/07/16 Printing Supervisor Relationship Specialty Start Date End Date Juani Kovacs MD [address] [facility] [address] PCP - General Family Medicine 11/07/16 Printing Supervisor Relationship Specialty Start Date End Date Juani Kovacs MD [address] [facility] [place] [address] PCP - General Family Medicine 3/15/17 Printing Supervisor Relationship Specialty Start Date End Date Juani Kovacs MD [address] [place] [address] PCP - General Family Medicine 11/07/16 (unrecognized sect ion and content) No Status Records Found INFORMATION SOURCE (unrecogn ized section and content) FOR RECORDS PERTAINING TO PATIENTS WHO ARE OR HAVE BEEN ENROLLED IN A CHEMICAL DEPENDENCY/SUBSTANCEABUSE PROGRAM, SOME INFORMATION MAY BE OMITTED. This clinical summary was aggregated from multiple sources. Caution should be exercised in using it in the provision of clinical care. This summary normalizes information from multiple sources, and as a consequence, information in this document may materially change the coding, format and clinical context of patient data. In addition, data may be omitted in some cases. CLINICAL DECISIONS SHOULD BE BASED ON THE PRIMARY CLINICAL RECORDS. [email or web address] [facility]. provides no warranty or guarantee of the accuracy or completeness of information in this document.
[2023-10-30 02:40] LABS: ALB/GLOB Ratio 1.2 RATIO (0.9-2.4); AST(SGOT) 27 U/L (15-37); Alanine Aminotransfer ALT/SGPT 27 U/L (16-61); Albumin, Serum 3.6 g/dL (3.2-5.0); Alkaline Phosphatase 68 U/L (45-117); Anion Gap 4 (5-15); BUN 25 mg/dL (7-18); BUN/Creat Ratio 21.6 RATIO (10-20); Calcium,Total 8.8 mg/dL (8.5-10.1); Chloride 110 mmol/L (98-107); Creatinine, Serum 1.16 mg/dL (0.70-1.30); EST Glomerular Filtration Rate 65 mL/min (>60); Est Glom Filt Rate - Afr Amer 79 mL/min (>60); Estimated Creatinine Clearance 63.29 ml/min; Globulin 2.9 g/dL (2.2-4.2); Glucose 135 mg/dL (74-106); Lipase 19 U/L (13-75); Potassium 3.7 mmol/L (3.5-5.1); Protein, Total 6.5 g/dL (6.4-8.2); Sodium Level 140 mmol/L (136-145)
[2023-10-30] MEDS: Ketorolac 15 MG/ML Vial IV (03:08)
[2023-10-30] MEDS: Ondansetron 4 MG/2 ML Vial IV (03:08)
--- NOTE | 2023-10-30 03:37 | US_ITS ---
EXAM: US ABDOMEN LIMITED, RIGHT UPPER QUADRANT CLINICAL INDICATION: pain, n/v -- renal mass seen on CT TECHNIQUE: Real-time ultrasound of the right upper quadrant with image documentation. COMPARISON: CT abdomen and pelvis from same day. FINDINGS: LIVER: Unremarkable. There is normal echotexture. No focal hepatic lesion. No intrahepatic biliary ductal dilation. GALLBLADDER: Multiple stones in the gallbladder, with distention and a positive sonographic Franz sign. No gallbladder wall thickening is demonstrated. No pericholecystic fluid. COMMON BILE DUCT: Unable to visualize the common bile duct due to bowel gas. PANCREAS: Heterogeneous appearance. No focal abnormality is demonstrated in the pancreas. No pancreatic ductal dilatation. RIGHT KIDNEY: Solid lesion in the right kidney measuring 3 cm. There is no hydronephrosis. No shadowing calculus. US/Gallbladder IMPRESSION: 1. Multiple stones in the gallbladder, with distention and a positive sonographic Franz sign. Findings may indicate acute cholecystitis. 2. Solid lesion in the right kidney measuring 3 cm. Findings correlate with the CT examination and are concerning for renal cell carcinoma. Electronically Signed: Solomon Dewey MD at 7:48 EST ,
--- NOTE | 2023-10-30 08:30 | ED.RN ---
PT REQUESTED MEDS. THEN DECLINED
--- NOTE | 2023-10-30 09:55 | EKG12_ITS ---
Test Reason : preop Blood Pressure : / mmHG Vent. Rate : 077 BPM Atrial Rate : 077 BPM P-R Int : 158 ms QRS Dur : 102 ms QT Int : 400 ms P-R-T Axes : 052 039 061 degrees QTc Int : 452 ms Normal sinus rhythm Normal ECG Confirmed by Bryant Rasmussen ([id number]), photo editor CHLOE ZAMUDIO ([id number]) on 10/31/2023 2:44:44 PM Referred By: Confirmed By:Bryant Rasmussen
[2023-10-30] MEDS: Piperacil/Tazobactam 3.375 GM in 0.9% Normal Saline (50mL MB+) 50 ML IV ×3 (10:02→22:22)
--- NOTE | 2023-10-30 10:16 | NURSING ---
OR THEN MED SURG BARB ACUTE CHOLECYSTITIS, RT RENAL MASS
--- NOTE | 2023-10-30 10:28 | HP.PCM_ITS ---
HPI - General General Date of Service: 10/30/23 Chief Complaint: Acute onset abdominal pain HPI Narrative MIO STEVEN, is a 73 M who presents to [facility] with complaints of acute onset right upper quadrant abdominal pain that began several hours following a dinner of pepperoni and sausage pizza. Patient states that he initially thought he was constipated as his abdomen was mildly distended, however, he developed progressive pain with some associated nausea and vomiting and decided to seek further evaluation. He confirms that his bowel habits have been regular and unremarkable. He denies any associated fevers or chills. He denies any prior experience of this pain. Patient's ER workup was notable for initial bedside ultrasound that showed evidence of cholelithiasis and emergency medicine received a positive sonographic Franz sign. Based on this initial impression a formal ultrasound was obtained confirming evidence of cholelithiasis and positive sonographic Franz sign. Further, patient's laboratories show a mild leukocytosis of 12,000 but CMP is entirely within normal limits. Patient has past history of hyperlipidemia but is not presently on any statin therapy. In addition to the above workup for patient's gallbladder, CT imaging noted, incidentally, a 3 cm mass on patient's right kidney. Patient has past surgical history of vasectomy but no other abdominal surgeries. [facility] Medical History Depressive disorder Dizziness Generalized anxiety disorder Lightheadedness Mixed hyperlipidemia Home Medications buspirone 15 mg tablet 15 mg PO BID 01/25/20 [History Last Taken Unknown] dutasteride 0.5 mg capsule 0.5 mg PO DAILY 01/25/20 [History Last Taken Unknown] fluticasone propionate 50 mcg/actuation nasal spray,suspension (Flonase Allergy Relief) 1 spray intranasal BID 01/25/20 [History Last Taken Unknown] lorazepam 0.5 mg tablet 0.5 mg PO DAILY PRN anxiety 01/25/20 [History Last Taken Unknown] venlafaxine 37.5 mg capsule,extended release 24 hr (Effexor XR) 37.5 mg PO BID 01/25/20 [History Last Taken Unknown] naproxen 500 mg tablet (Naprosyn) 500 mg PO BID 10/30/23 [History Last Taken Unknown] Allergy/AdvReac Type Severity Reaction Status Date / Time bupropion [From Wellbutrin] AdvReac Severe anxiety Verified 10/30/23 01:59 nortriptyline AdvReac Severe Lightheaded Verified 10/30/23 01:59 ness sertraline AdvReac Severe libido Verified 10/30/23 01:59 tamsulosin AdvReac Severe Lightheaded Verified 10/30/23 01:59 ness Family History (Updated 01/27/20 @ 15:22 by Ginny Centeno) Father Amyotrophic lateral sclerosis (ALS) Mother Cardiac pacemaker in situ Surgical History History of tonsillectomy and adenoidectomy History of vasectomy Status post nasal septoplasty Social History Smoking Status: Former smoker alcohol intake: current details: 2 beers daily substance use type: does not use caffeine: No Vital Signs Vital Signs Vital Signs: 10/30/23 01:59 10/30/23 03:59 10/30/23 05:00 Temperature 97.3 F L Temperature Source Temporal Pulse Rate 59 L 86 Respiratory Rate 18 16 16 Blood Pressure 179/82 H 168/84 H Blood Pressure Mean 114 112 Pulse Ox 95 94 Oxygen Delivery Method Room Air Room Air 10/30/23 07:00 10/30/23 08:57 Temperature 97.6 F L Temperature Source Pulse Rate 64 72 Respiratory Rate 18 16 Blood Pressure 146/78 H 138/64 H Blood Pressure Mean 100 88 Pulse Ox 99 99 Oxygen Delivery Method Room Air Weight Weight: 200 lb Body Mass Index (BMI) 28.7 Physical Exam Const alert, oriented x3 and no apparent distress Constitutional Narrative: No evidence of jaundice Resp normal respiratory effort GI GI Narrative: No scars nondistended, soft, positive Frnaz sign and right upper quadrant with palpation Results Lab / Micro Data 10/30/23 02:18 10/30/23 02:18 Labs: Laboratory Results - last 24 hr 10/30/23 02:18: WBC 12.0 H, RBC 4.64, Hgb 13.8, Hct 41.7, MCV 89.9, MCH 29.7, MCHC 33.1, RDW Std Deviation 39.7, RDW Coeff of [place] 12.2, Plt Count 145 L, MPV 10.8, Immature Gran % (Auto) 0.500, Neut % (Auto) 72.1 H, Lymph % (Auto) 19.1, [place] % (Auto) 5.6, Eos % (Auto) 1.9, Baso % (Auto) 0.8, Absolute Neuts (auto) 8.6 H, Absolute Lymphs (auto) 2.28, Nucleated RBC % 0, Sodium 140, Potassium 3.7, Chloride 110 H, Carbon Dioxide 26.0, Anion Gap 4 L, BUN 25 H, Creatinine 1.16, Estim Creat Clear Calc 63.29, Est GFR (MDRD) Af Amer 79, Est GFR (MDRD) Non-Af 65, BUN/Creatinine Ratio 21.6 H, Glucose 135 H, Calcium 8.8, Total Bilirubin 0.50, AST 27, ALT 27, Alkaline Phosphatase 68, Total Protein 6.5, Albumin 3.6, Globulin 2.9, Albumin/Globulin Ratio 1.2, Lipase 19 Imaging Radiology Impression Abdomen/Pelvis CT 10/30/23 02:33 IMPRESSION: 1. 2.7 cm solid round mass in the right kidney highly suspicious for renal cell carcinoma. 2. 7 mm cyst within the tail of the pancreas. Recommend follow-up with CT versus MRI with dedicated pancreas protocol in 2 years. 3. No acute intra-abdominal abnormality. Electronically Signed: Valdemar Lopez DO at 3:18 EST , ADDENDUM: 10/30/23 0336 IMPRESSION: 1. 2.7 cm solid round mass in the right kidney highly suspicious for renal cell carcinoma. 2. 7 mm cyst within the tail of the pancreas. Recommend follow-up with CT versus MRI with dedicated pancreas protocol in 2 years. 3. No acute intra-abdominal abnormality. N.B. : kylah murray RN, confirmed on 10/30/2023 03:29:09 (ET) that the healthcare facility has received the radiology report. Electronically Signed: Valdemar Lopez DO at 3:18 EST , Gallbladder Ultrasound 10/30/23 03:37 IMPRESSION: 1. Multiple stones in the gallbladder, with distention and a positive sonographic Franz sign. Findings may indicate acute cholecystitis. 2. Solid lesion in the right kidney measuring 3 cm. Findings correlate with the CT examination and are concerning for renal cell carcinoma. Electronically Signed: Solomon Dewey MD at 7:48 EST , Assessment & Plan Assessment/Plan (1) Acute calculous cholecystitis: PLAN: Patient is 73-year-old male with acute presentation of right upper quadrant abdominal pain and ER findings of leukocytosis, cholelithiasis, and exam finding of positive Franz sign. Taken together this is consistent with a diagnosis of acute cholecystitis. I discussed with patient that I agreed with the diagnosis of acute cholecystitis and recommended surgical cholecystectomy with cholangiogram. Patient is receptive of this recommendation and wishes to proceed as described. He will be added onto the emergency operating schedule as operating room time becomes available. In the interim he will be started on IV Zosyn by emergency medicine and admitted to the hospital. (2) Renal mass, right: PLAN: Patient with incidental right renal mass that has highly concerning for renal cell carcinoma per radiology. Patient asked whether or not this will be examinable during surgery and I have informed him that the right kidney is a retroperitoneal structures so I am not planning to be in a position to visualize this mass. We will have to have him make follow-up with urology as an outpatient. Charges/Coding Visit Charges Inpatient E&M: 37194 Init Hosp L2
--- OUTSIDE RECORDS SUMMARY | 2023-10-30 11:02 | XMS RPT_ITS | CCD ---
Author Name Unknown Address [address] [place] [address] [place] [address] Organization [facility] Care Team Providers Care Credit Analyst Name Role Phone Juani Kovacs MD Primary Care Provider [phone] JUANI KOVACS Primary Care Unavailable FILI JENSEN Attending Unavailable JUANI KOVACS Primary Care Unavailable JUANI KOVACS Attending Unavailable JUANI KOVACS Primary Care Unavailable JUANI KOVACS Attending Unavailable JUANI KOVACS Referring Unavailable JUANI KOVACS Primary Care Unavailable JUANI KOVACS Attending Unavailable JUANI KOVACS Primary Care Unavailable Juani Kovacs MD Primary Care Provider [phone] Allergies Allergy Classification Reported Allergen(s) Allergy Type Date of Onset Reaction(s) Facility (15 sources) buPROPion; Translations: [BUPROPION HCL] Drug Allergy 10-29-2008 Intolerance [facility] (15 sources) Nortriptyline; Translations: [NORTRIPTYLINE] Drug Allergy 12-31-2006 Intolerance [facility] (15 sources) Sertraline; Translations: [SERTRALINE HCL] Drug Allergy 10-29-2008 Intolerance [facility] (15 sources) tamsulosin; Translations: [TAMSULOSIN HCL] Drug Allergy 06-05-2010 Intolerance [facility] Medications Current Medications Medication Drug Class(es) Dates [...] 90.99 kg Juani Kovacs MD Work Phone: [facility] 07-01-2023 13:37-0500 Diastolic blood pressure 76 mm[Hg] Juani Kovacs MD Work Phone: [facility] 07-01-2023 13:37-0500 Heart rate 74 /min Juani Kovacs MD Work Phone: [facility] 07-01-2023 13:37-0500 Respiratory rate 16 /min Juani Kovacs MD Work Phone: [facility] 07-01-2023 13:37-0500 Systolic blood pressure 120 mm[Hg] Juani Kovacs MD Work Phone: [facility] 12-25-2022 09:56-0400 Body weight 90.27 kg Juani Kovacs MD Work Phone: [facility] 12-25-2022 09:56-0400 Diastolic blood pressure 78 mm[Hg] Juani Kovacs MD Work Phone: [facility] 12-25-2022 09:56-0400 Heart rate 82 /min Juani Kovacs MD Work Phone: [facility] 12-25-2022 09:56-0400 Respiratory rate 16 /min Juani Kovacs MD Work Phone: [facility] 12-25-2022 09:56-0400 Systolic blood pressure 118 mm[Hg] Juani Kovacs MD Work Phone: [facility] 07-11-2022 14:39-0500 Body weight 91.26 kg Juani Kovacs MD Work Phone: [facility] 07-11-2022 14:39-0500 Diastolic blood pressure 84 mm[Hg] Juani Kovacs MD Work Phone: [facility] 07-11-2022 14:39-0500 Heart rate 64 /min Juani Kovacs MD Work Phone: [facility] 07-11-2022 14:39-0500 Respiratory rate 16 /min Juani Kovacs MD Work Phone: [facility] 07-11-2022 14:39-0500 Systolic blood pressure 132 mm[Hg] Juani Kovacs MD Work Phone: [facility] 01-08-2022 15:22-0400 Body weight 91.9 kg Juani Kovacs MD Work Phone: [facility] 01-08-2022 15:22-0400 Diastolic blood pressure 82 mm[Hg] Juani Kovacs MD Work Phone: [facility] 01-08-2022 15:22-0400 Heart rate 68 /min Juani Kovacs MD Work Phone: [facility] 01-08-2022 15:22-0400 Respiratory rate 16 /min Juani Kovacs MD Work Phone: [facility] 01-08-2022 15:22-0400 Systolic blood pressure 134 mm[Hg] Juani Kovacs MD Work Phone: [facility] Encounters Encounter Date Encounter Type Care Provider Facility Start: 10-09-2023 Shannon CARBALLO RN.SUBMARINE DIVER Work Phone: [facility] Procedures Date Procedure Procedure Detail Performing [...] - S frankie or Plasma Fili Jensen APRN.SUBMARINE DIVER Work Phone: Start: 08-11-2014 Colonoscopy Fili chen [employer].SUBMARINE DIVER Work Phone: Plan of Treatment Date Care Activity Detail Author Start: 06-24-2028 Lipid 1996 panel - Serum or Plasma Lipid Screening [facility] Start: 06-24-2028 Lipid panel Lipid Screening [facility] Start: 06-01-2027 Lipid 1996 panel - Serum or Plasma Lipid Screening [facility] Start: 06-01-2027 LIPID SCREEN LIPID SCREEN [facility] Start: 07-11-2026 LIPID SCREEN LIPID SCREEN [facility] Start: 06-24-2026 Diabetes Screening Diabetes Screening [facility] Start: 06-01-2025 DIABETES SCREEN DIABETES SCREEN [facility] Start: 06-01-2025 Diabetes Screening Diabetes Screening [facility] Start: 05-31-2025 Urine microalbumin profile [facility] Start: 08-11-2024 Colonoscopy COLONOSCOPY [facility] Start: 08-11-2024 COLORECTAL CANCER SCREENING COLORECTAL CANCER SCREENING [facility] Start: 08-11-2024 Screening for malignant neoplasm of colon [facility] Start: 07-11-2024 DIABETES SCREEN DIABETES SCREEN [facility] Start: 08-26-2023 Advance Directive Discussion Advance Directive Discussion [facility] Start: 08-26-2023 Depression Assessment Depression Assessment [facility] Start: 06-27-2023 End: 08-27-2023 Comprehensive metabolic 2000 panel - Serum or Plasma COMP METABOLIC PANEL Lab Routine Mixed hyperlipidemia Expected: 06/27/2023 (Approximate), Expires: 08/27/2023 [facility] Work Phone: Immunizations Immunization Date Immunization Notes Care Provider Santos fuentes 07-01-2023 COVID-19 vaccine, ag e 12+ yr, 2022- season (PFIZER-BIONTECH) Juani Kovacs MD Work Phone: [facility] 07-01-2023 influenza (HD-IIV4) vaccine, age 65+ yr, high dose, quadrivalent, PF (FLUZONE HIGH-DOSE) Juani Kovacs MD Work Phone: [facility] 05-12-2022 influenza virus vacc ine, unspecified formulation Fili Iraj [employer].SUBMARINE DIVER Work Phone: [facility] 01-27-2022 COVID-19 vaccine, booster dose (MODERNA) Juani Kovacs MD Work Phone: [facility] 07-04-2021 COVID-19 vaccine, ag e 12+ yr (PFIZER-BIONTECH - PURPLE TOP) Fili Iraj [employer].SUBMARINE DIVER Work Phone: [facility] 05-29-2021 influenza, high dose seasonal, preservative-free Fili Iraj [employer].SUBMARINE DIVER Work Phone: [facility] 11-02-2020 COVID-19 vaccine, ag e 12+ yr (PFIZER-BIONTECH - PURPLE TOP) Fili Iraj [employer].SUBMARINE DIVER Work Phone: [facility] 10-18-2020 zoster vaccine recombinant Fili Iraj [employer].SUBMARINE DIVER Work Phone: [facility] 10-05-2020 COVID-19 vaccine, ag e 12+ yr (PFIZER-BIONTECH - PURPLE TOP) Flii Iraj [employer].SUBMARINE DIVER Work Phone: [facility] 07-08-2020 zoster vaccine recombinant Fili Iraj [employer].SUBMARINE DIVER Work Phone: [facility] 05-14-2020 influenza, high dose seasonal, preservative-free Fili Iraj [employer].SUBMARINE DIVER Work Phone: [facility] 07-07-2018 influenza, high dose seasonal, preservative-free Fili Iraj [employer].SUBMARINE DIVER Work Phone: [facility] 06-05-2017 influenza, high dose seasonal, preservative-free Fili Iraj [employer].SUBMARINE DIVER Work Phone: [facility] 05-26-2016 influenza, seasonal, injectable Fili Iraj [employer].SUBMARINE DIVER Work Phone: [facility] 10-06-2015 pneumococcal polysaccharide vaccine, 23 valent Fili Iraj [employer].SUBMARINE DIVER Work Phone: [facility] 05-31-2015 influenza, high dose seasonal, preservative-free Fili Iraj [employer].SUBMARINE DIVER Work Phone: [facility] Work Phone: 05-31-2015 tetanus toxoid, redu remedios diphtheria toxoid, and acellular pertussis vaccine, adsorbed Fili Iraj [employer].SUBMARINE DIVER Work Phone: [facility] Work Phone: 03-09-2015 hepatitis A and hepatitis B vaccine Fili Iraj [employer].SUBMARINE DIVER Work Phone: [facility] 09-22-2014 hepatitis A and hepatitis B vaccine Fili Iraj [employer].SUBMARINE DIVER Work Phone: [facility] 08-05-2014 pneumococcal conjuga te vaccine, 13 valent Fili Iraj [employer].SUBMARINE DIVER Work Phone: [facility] 08-03-2014 hepatitis A and hepatitis B vaccine Fili Iraj [employer].SUBMARINE DIVER Work Phone: [facility] 06-26-2014 influenza, seasonal, injectable Fili Iraj [employer].SUBMARINE DIVER Work Phone: [facility] 07-10-2013 influenza virus vacc ine, unspecified formulation Fili Iraj [employer].SUBMARINE DIVER Work Phone: [facility] 06-22-2012 influenza virus vacc ine, unspecified formulation Fili Iraj [employer].SUBMARINE DIVER Work Phone: [facility] 06-06-2011 zoster vaccine, live Fili C ecil [employer].SUBMARINE DIVER Work Phone: [facility] 06-05-2010 influenza virus vacc ine, unspecified formulation Fili Iraj [employer].SUBMARINE DIVER Work Phone: [facility] 06-03-2009 influenza virus vacc ine, unspecified formulation Fili Iraj [employer].SUBMARINE DIVER Work Phone: [facility] 07-16-2007 influenza virus vacc ine, unspecified formulation Fili Iraj [employer].SUBMARINE DIVER Work Phone: [facility] 06-19-2006 influenza virus vacc ine, unspecified formulation Fili Iraj [employer].SUBMARINE DIVER Work Phone: [facility] Work Phone: Payers Date Payer Category Payer Medicare [id number] 2019 Unknown MMO MMO MEDICARE SUPPLEMENT [id number] 2019-Present [phone] [address] [place] [address] Indemnity [id number] 2019 Unknown MMO MMO MEDICARE SUPPLEMENT [id number] 2019-Present [phone] [address] [place] [address] Indemnity [id number] 2014 Medicare MEDICARE MEDICAR E A AND B [id number] 2014-Present [phone] [address] [address] [place] [address] Medicare [id number] 2014 Medicare MEDICARE MEDICAR E A AND B [id number] 2014-Present [phone] [place] [address] Medicare [id number] 2014 Medicare [id number] Social History Date Type Detail Facility Start: 10-29-2017 End: 07-11-2022 Tobacco smoking status NHIS Ex-smoker [facility] Start: 11-06-2021 End: 09-17-2023 Alcohol intake Current drinker of alcohol (finding) [facility] Start: 04-11-2020 End: 10-05-2022 History SDOH Alcohol Frequency 5 [facility] Start: 04-11-2020 End: 10-05-2022 History SDOH Alcohol Std Drinks 1 [facility] Start: 09-12-2016 History SDOH Alcohol Comment two beer daily [facility] Start: 04-11-2020 End: 10-05-2022 History SDOH Social Connections Phone 2 [facility] Start: 04-11-2020 End: 10-05-2022 History SDOH Social Connections Living 3 [facility] Start: 04-11-2020 End: 10-05-2022 History SDOH Physical Activity DPW 6 [facility] Start: 04-11-2020 History SDOH Physica l Activity MPS 10 [facility] Start: 04-11-2020 Education 17 [facility] Start: 1950 Sex Assigned At Not on file [facility] Start: 12-29-2021 End: 07-11-2022 Exposure to SARS-CoV-2 (event) Not sure [facility] History of tobacco use Current smoker [facility] Start: 10-29-2017 End: 07-11-2022 Tobacco use and exposure Smokeless tobacco non-user [facility] Start: 07-11-2022 Tobacco Comment quit [facility] years [facility] Start: 10-05-2022 End: 07-01-2023 History of Social function [facility] Start: 10-05-2022 End: 07-01-2023 Social connection and isolation panel [facility] Do you belong to any clubs or organizations such as jain groups, unions, fraternal or athletic groups, or school groups? Yes [facility] Are you now , , , , never or living with a partner? [facility] How often to you hav e a drink containing alcohol? 4 or more times a week [facility] How many standard dr inks containing alcohol do you have on a typical day? 1 or 2 [facility] How often do you hav e 6 or more drinks on 1 occasion? Never [facility] How hard is it for y ou to pay for the very basics like food, housing, medical care, and heating Not hard at all [facility] Do you feel stress - tense, restless, nervous, or anxious, or unable to sleep at night because your mind is troubled all the time - these days [OSQ] Only a little [facility] (I/We) worried wheth er (my/our) food would run out before (I/we) got money to buy more. Never true [facility] In the past 12 month s, was there a time when you were not able to pay the mortgage or rent on time? No [facility] Clinical Notes 08-05-2014 to 10-10-2023 Telephone Encounter - Juani Kovacs MD - 10/10/2023 11:54 AM ESTTelephone Encounter - Meredith Lopez Ma - 09/26/2023 9:58 AM Juani Daly MD - 07/01/2023 1:40 PM EST Note Date & Type Note [facility] 10-10-2023 Miscellaneous Notes OK to refill as ordered Juani Kovacs MD documented in this encounter [facility] 09-26-[address] [facility] sleep disorder center sends request of recent OV discussing need for sleep study as well as med list and problem list. This has been printed and faxed to [facility] at [phone]. Meredith Lopez Ma documented in this encounter [facility] 09-17-2023 Note HNO ID: [id number] Author: JUANI KOVACS MD Service: ? Author [...] at home. Pt okay with completing at [facility]. Past medical history, appointments, medications, allergies [...] (FLONASE) 50 mcg/actuation nasal spray Use 1 [place] in each nostril twice daily. loratadine (CLARITIN) [...] - Will order PSG to complete at [facility] 2. Hypersomnia - ICD9: 780.54, ICD10: G47.10 - As noted above 3. Generalized anxiety disorder - ICD9: 300.02, ICD10: F41.1 - Rx sent into Pharmacy - LORAZEPAM 0.5 MG TABLET Will fax order over to [facility], once results received will review. I agree with the Chief Complaint, ROS, and Past Histories independently gathered by the clinical family support worker and the remaining scribed note accurately describes my personal service to the patient. Medical Decision Making: Problems: Moderate: 1+ chronic illnesses with change Data: Unique test(s) ordered: 1 Risk: Low: Low risk from testing/treatment Medical Decision Making Level: 3 - Low Juani Kovacs MD The documentation for this note was completed by Naida Najera (more content not included)... [facility] 07-01-2023 Note HNO ID: [id number] Author: Juani Kovacs MD Service: ? Author [...] (FLONASE) 50 mcg/actuation nasal spray Use 1 [place] in each nostril twice daily. loratadine (CLARITIN) [...] - INFLUENZA VACC (more content not included)... [facility] 07-01-2023 History of Presen t illness [...] (FLONASE) 50 mcg/actuation nasal spray Use 1 [place] in each nostril twice daily. loratadine (CLARITIN) [...] YR, HIGH DOSE, QUADRIVALENT (FLUZONE HIGH-DOSE) - [employer] COVID-19 VACCINE (2022- SEASON) AGE 12+ YR [...] Past Histories independently gathered by the clinical family support worker and the remaining scribed note accurately describes [...] Meredith Lopez Ma documented in this encounter [facility] 06-20-2023 Miscellaneous Notes Spoke with pt and [...] Amber Jacobson LPN. documented in this encounter [facility] 03-21-2023 Miscellaneous Notes Approved. PDMP website checked [...] Blanka Ibanez LPN documented in this encounter [facility] 01-03-2023 Miscellaneous Notes OK to refill as ordered Juani Kovacs MD Patient has been identified by name and date of : Yes Requested Prescriptions Pending Prescriptions Disp Refills busPIRone (BUSPAR) 15 mg tablet 90 tablet 3 Sig: Take 0.5 tablets by mouth twice daily. RX INSTRUCTIONS: Patient aware RX will be sent to pharmacy. No need to notify patient. Julia Kincaid MA [facility] 06/2022 Nov 06/2023 Last refill; 12/2021 documented in this encounter [facility] 12-25-2022 Note HNO ID: [id number] Author: Juani Kovacs MD Service: ? Author Type: Physician Type: Progress Notes Filed: 12/25/2022 11:48 AM Note Text: Chief Complaint Patient presents with: F/U 6 Month HPI Juan Jose Shultz is a 72 year old male who presents here today for a 6 month follow up. Pt here today for a follow up. Was in [facility] at the end of October, beginning of November. Will be going to take in [place]. Was seen in September virtually for Covid, [...] (FLONASE) 50 mcg/actuation nasal spray Use 1 [place] in each nostril twice daily. Naproxen (EC-NAPROSYN) [...] F41.1 (primary diagnosis) (more content not included)... [facility] 12-25-2022 History of Presen t illness Narrative Chief Complaint Patient presents with: F/U 6 Month HPI Juan Jose Shultz is a 72 year old male who presents here today for a 6 month follow up. Pt here today for a follow up. Was in [facility] at the end of October, beginning of November. Will be going to take in [place]. Was seen in September virtually for Covid, [...] (FLONASE) 50 mcg/actuation nasal spray Use 1 [place] in each nostril twice daily. Naproxen (EC-NAPROSYN) [...] Past Histories independently gathered by the clinical family support worker and the remaining scribed note accurately describes [...] Naida Rodriguez Ma documented in this encounter [facility] 12-19-2022 Miscellaneous Notes Approved PDMP website checked and validated. All prescriptions have been APPROPRIATELY filled. No suspicious activity was identified. 12/19/2022 by Fili Jensen APRN.SUBMARINE DIVER The following approved medication requests have been [...] Blanka Ibanez LPN documented in this encounter [facility] 10-19-2022 Miscellaneous Notes The following approved medication [...] Nadia Rob LPN documented in this encounter [facility] 10-05-2022 Note HNO ID: [id number] Author: Fili Jensen APRN.CNP Service: ? Author [...] (FLONASE) 50 mcg/actuation nasal spray Use 1 [place] in each nostril twice daily. Naproxen (EC-NAPROSYN) [...] would like to continue care with a [facility] Virtual Primary Care physician, please ask your provider to place a Establish Primary Care order. Use [employer] to manage your care, wherever you are, 18/03, on your mobile device or computer. [employer] connects you to [employer] so you can access all your health information in one place and also schedule and request virtual appointments with primary care providers. Nirmatrelvir/Ritonavir (Paxlovid) Eligibility and Patient Discussion [facility] Formulary Restriction Criteria: Adult outpatients 18 years [...] not have s (more content not included)... [facility] 07-11-2022 History of Presen t illness [...] (FLONASE) 50 mcg/actuation nasal spray Use 1 [place] in each nostril twice daily. loratadine (CLARITIN) [...] Past Histories independently gathered by the clinical family support worker and the remaining scribed note accurately describes [...] Naida Rodriguez Ma documented in this encounter [facility] 06-21-2022 Miscellaneous Notes Approved. PDMP website checked [...] Caity Mcnulty MA documented in this encounter [facility] 05-08-2022 Miscellaneous Notes Call to pt and notified him of below. He did contact Dr. Tracey's office who states he needs referral before anything can be scheduled. Pt notified that referral would be faxed to Dr. Tracey's office at [phone]. Pt noted he did not need ENT [...] has been sent. documented in this encounter [facility] 01-08-2022 History of Presen t illness Narrative [...] (FLONASE) 50 mcg/actuation nasal spray Use 1 [place] in each nostril twice daily. loratadine (CLARITIN) [...] down his legs. - Will f/u with [facility] to have his back checked out. 6 mo f/u with labs prior I agree with the Chief Complaint, ROS, and Past Histories independently gathered by the clinical family support worker and the remaining scribed note accurately describes [...] Naida Rodriguez Ma documented in this encounter [facility] 12-22-2021 M[address] [facility]. All prescriptions [...] you. JERRY Segovia documented in this encounter [facility] documented as of this encounter (statuses as of 12/22/2021) [facility]12-11-2014 History of Past illness Narrative* Problem Noted Date Resolved Date Welcome to Medicare preventive visit 08/05/2014 09/18/2016 Essential hypertension 6 documented as of this encounter (statuses as of 01/08/2022) [facility] History of Past illness Narrative* Problem Noted Date Resolved Date Welcome to Medicare preventive visit 08/05/2014 09/18/2016 Essential hypertension 6 documented as of this encounter (statuses as of 05/08/2022) [facility] History of Past illness Narrative* Problem Noted Date Resolved Date Welcome to Medicare preventive visit 08/05/2014 09/18/2016 Essential hypertension 6 documented as of this encounter (statuses as of 06/21/2022) [facility] History of Past illness Narrative* Problem Noted Date Resolved Date Welcome to Medicare preventive visit 08/05/2014 09/18/2016 Essential hypertension 6 documented as of this encounter (statuses as of 07/12/2022) [facility] History of Past illness Narrative* Problem Noted Date Resolved Date Welcome to Medicare preventive visit 08/05/2014 09/18/2016 Essential hypertension 6 documented as of this encounter (statuses as of 10/19/2022) [facility] History of Past illness Narrative* Problem Noted Date Resolved Date Welcome to Medicare preventive visit 08/05/2014 09/18/2016 Essential hypertension 6 documented as of this encounter (statuses as of 12/19/2022) [facility] History of Past illness Narrative* Problem Noted Date Resolved Date Welcome to Medicare preventive visit 08/05/2014 09/18/2016 Essential hypertension 6 documented as of this encounter (statuses as of 12/25/2022) [facility] History of Past illness Narrative* Problem Noted Date Resolved Date Welcome to Medicare preventive visit 08/05/2014 09/18/2016 Essential hypertension 6 documented as of this encounter (statuses as of 01/03/2023) [facility] History of Past illness Narrative* Problem Noted Date Diagnosed Date Resolved Date Welcome to Medicare preventive visit 08/05/2014 09/18/2016 Essential hypertension 08/16 documented as of this encounter (statuses as of 03/21/2023) [facility] History of Past illness Narrative* Problem Noted Date Diagnosed Date Resolved Date Welcome to Medicare preventive visit 08/05/2014 09/18/2016 Essential hypertension 08/16 documented as of this encounter (statuses as of 06/20/2023) [facility] History of Past illness Narrative* Problem Noted Date Diagnosed Date Resolved Date Welcome to Medicare preventive visit 08/05/2014 09/18/2016 Essential hypertension 08/16 documented as of this encounter (statuses as of 07/02/2023) [facility] History of Past illness Narrative* Problem Noted Date Diagnosed Date Resolved Date Welcome to Medicare preventive visit 08/05/2014 09/18/2016 Mild episode of recurrent ma clement depressive disorder 03/13/2006 09/17/2023 Essential hypertension 08/16 documented as of this encounter (statuses as of 09/26/2023) [facility]12-[facility] History of Past illness Narrative* Problem Noted Date Diagnosed Date Resolved Date Welcome to Medicare preventive visit 08/05/2014 09/18/2016 Mild episode of recurrent ma clement depressive disorder 03/13/2006 09/17/2023 Essential hypertension 08/16 documented as of this encounter (statuses as of 10/10/2023) [facility] Generalized anxiety disorder [facility] Diagnosis Generalized anxiety disorder- Primary [...] Generalized anxiety disorder [facility] Diagnosis Mild episode of recurrent major depressive disorder (HCC)- Primary Generalized anxiety disorder Mixed hyperlipidemia Arthralgia, unspecified joint BPH with urinary obstruction Hypertrophy of prostate with urinary obstruction and other lower urinary tract symptoms (LUTS) documented in this encounter [facility]* Diagnosis Generalized anxiety disorder Mild episode of recurrent major depressive disorder (HCC) documented in this encounter [facility]* Diagnosis Generalized anxiety disorder documented in this encounter [facility]* Diagnosis Generalized anxiety disorder documented in this encounter [facility] note* Diagnosis Mild episode of recurrent major [...] involving multiple joints documented in this encounter [facility] note* Diagnosis BPH with urinary obstruction Hypertrophy of prostate with urinary obstruction and other lower urinary tract symptoms (LUTS) documented in this encounter [facility] Reason for Referral Specialty Diagnoses / Procedures Referred By Franko wilder Referred To Contact Dentistry Diagnoses Tongue lesion Procedures CONSULT TO DENTISTRY OFFICE/OUTPATIENT [facility] 60-74 MINUTES Fili Jensen APRN.SUBMARINE DIVER [address] [place] [address] Referral ID Status Reason Start Date Expiration Date Visits Requested Visits Authorized [id number] Pending Review PCP Requested Referral 05/08/2022 05/08/2023 [...] or prosecute any alcohol or drug abuse patient.[facility] the event this information is protected by the Federal Confidentiality of Alcohol and Drug Abuse Patient Records regulations: The Federal rules restrict any use of the information to criminally investigate or prosecute any alcohol or drug abuse patient.[facility] the event this information is protected by the Federal Confidentiality of Alcohol and Drug Abuse Patient Records regulations: The Federal rules restrict any use of the information to criminally investigate or prosecute any alcohol or drug abuse patient.[facility] the event this information is protected by the Federal Confidentiality of Alcohol and Drug Abuse Patient Records regulations: The Federal rules restrict any use of the information to criminally investigate or prosecute any alcohol or drug abuse patient.[facility] the event this information is protected by the Federal Confidentiality of Alcohol and Drug Abuse Patient Records regulations: The Federal rules restrict any use of the information to criminally investigate or prosecute any alcohol or drug abuse patient.[facility] the event this information is protected by the Federal Confidentiality of Alcohol and Drug Abuse Patient Records regulations: The Federal rules restrict any use of the information to criminally investigate or prosecute any alcohol or drug abuse patient.[facility] the event this information is protected by the Federal Confidentiality of Alcohol and Drug Abuse Patient Records regulations: The Federal rules restrict any use of the information to criminally investigate or prosecute any alcohol or drug abuse patient.[facility] the event this information is protected by the Federal Confidentiality of Alcohol and Drug Abuse Patient Records regulations: The Federal rules restrict any use of the information to criminally investigate or prosecute any alcohol or drug abuse patient.[facility] the event this information is protected by the Federal Confidentiality of Alcohol and Drug Abuse Patient Records regulations: The Federal rules restrict any use of the information to criminally investigate or prosecute any alcohol or drug abuse patient.[facility] the event this information is protected by the Federal Confidentiality of Alcohol and Drug Abuse Patient Records regulations: The Federal rules restrict any use of the information to criminally investigate or prosecute any alcohol or drug abuse patient.[facility] the event this information is protected by the Federal Confidentiality of Alcohol and Drug Abuse Patient Records regulations: The Federal rules restrict any use of the information to criminally investigate or prosecute any alcohol or drug abuse patient.[facility] the event this information is protected by the Federal Confidentiality of Alcohol and Drug Abuse Patient Records regulations: The Federal rules restrict any use of the information to criminally investigate or prosecute any alcohol or drug abuse patient.[facility] the event this information is protected by the Federal Confidentiality of Alcohol and Drug Abuse Patient Records regulations: The Federal rules restrict any use of the information to criminally investigate or prosecute any alcohol or drug abuse patient.[facility] the event this information is protected by the Federal Confidentiality of Alcohol and Drug Abuse Patient Records regulations: The Federal rules restrict any use of the information to criminally investigate or prosecute any alcohol or drug abuse patient.[facility] Reason for Visit (unrecogniz ed section and [...] Immunizations 07/01/2023 Flu vaccination Reason Comments Forms [facility] Request OV notes and med list for sleep study Reason Onset Date Comments Refill Request 10/09/2023 Care Teams (unrecognized sec tion and content) Credit Analyst Relationship Specialty Start Date End Date Juani Kovacs MD [address] [place], [place] [phone] PCP - General Family Practice 11/07/16 Credit Analyst Relationship Specialty Start Date End Date Juani Kovacs MD [address] [place], [place] [phone] PCP - General Family Practice 11/07/16 Credit Analyst Relationship Specialty Start Date End Date Juani Kovacs MD [address] [place], [place] [phone] PCP - General Family Medicine 11/07/16 Credit Analyst Relationship Specialty Start Date End Date Juani Kovacs MD [address] [facility] [place] [address] PCP - General Family Medicine 11/07/16 Credit Analyst Relationship Specialty Start Date End Date Juani Kovacs MD [address] [place] [address] PCP - General Family Medicine 11/07/16 Credit Analyst Relationship Specialty Start Date End Date Juani Kovacs MD [address] [place] [address] PCP - General Family Medicine 11/07/16 Credit Analyst Relationship Specialty Start Date End Date Juani Kovacs MD [address] [place] [address] PCP - General Family Medicine 11/07/16 Credit Analyst Relationship Specialty Start Date End Date Juani Kovacs MD [address] [place] [address] PCP - General Family Medicine 11/07/16 Credit Analyst Relationship Specialty Start Date End Date Juani Kovacs MD [address] [place] [address] PCP - General Family Medicine 11/07/16 Credit Analyst Relationship Specialty Start Date End Date Juani Kovacs MD [address] [place] [address] PCP - General Family Medicine 11/07/16 Credit Analyst Relationship Specialty Start Date End Date Juani Kovacs MD [address] [place] [address] PCP - General Family Medicine 3/15/17 Credit Analyst Relationship Specialty Start Date End Date Juani Kovacs MD [address] [place] [address] PCP - General Family Medicine 11/07/16 (unrecognized [...] BE BASED ON THE PRIMARY CLINICAL RECORDS. [employer] [facility]. provides no warranty or guarantee of the accuracy or completeness of information in this document.
--- NOTE | 2023-10-30 13:35 | GALL_PTH ---
PATHOLOGY RESULTS PATIENT: MIO STEVEN LOC: MS3 U#:[id number] AGE/SX: 73/M ROOM: ND310 RE10/30/[address]: Dr. Bryant Aj MD : 1950 BED: 1 DIS: 10/31/2023 SPEC #: [id number] RECD: 10/31/23 10:05 STATUS: SUNNI MCFARLAND #: [id number] DENIS: 10/30/23 13:[address]: Bryant Aj DEPT: SURGICAL PATHOLOGY RECD BY: Caity Beard ENTERED: 10/31/23 10:05 SP TYPE: PRABHU MORA DR: Dr. Oswald Shabazz MD Tissues: Gallbladder, NOS Procedures: Surgery Specimen Level III HEADER OPERATION: Laparoscopic cholecystectomy with IOC PRE-OP DIAGNOSIS: Acute calculus cholecystitis, right renal mass TISSUE SUBMITTED: Gallbladder MICROSCOPIC DIAGNOSIS Gallbladder, cholecystectomy: Acute and chronic ulcerative and hemorrhagic cholecystitis and cholelithiasis. SJ:mitali 11/01/2023 MICROSCOPIC DESCRIPTION Slides are reviewed. GROSS DESCRIPTION Received is one container labeled with the patient's name and designated gallbladder. The specimen consists of a gallbladder measuring 15.0 cm in length and up to 4.0 cm in diameter. The external surface is pink-ruelas, smooth and glistening for the most part. Focally it is granular, hemorrhagic and contains cautery artifact. The gallbladder contains a small amount of hemorrhagic bile and distended with multiple ruelas-light yellow-brown, multifaceted stones measuring in aggregate 10.0 x 9.0 x 3.5 cm and 0.6 to 2.5 cm in greatest dimension. The mucosa is congested and ulcerated. The gallbladder wall measures 0.2 cm in thickness. Story Editor sections from the gallbladder and the cystic duct are submitted in one cassette. / ELISHA:mitali 10/31/2023 TC:2 CPT: 52809
--- NOTE | 2023-10-30 17:05 | RAD_ITS ---
HISTORY: PAIN COMPARISON: pelvic ultrasound October 29, 2023 TECHNIQUE: A total of 2 fluoroscopic runs with 141 and 105 images were saved without a radiologist present. FINDINGS: Total fluoroscopy time: 35.4 seconds Cumulative air kerma: 17.25 mGy RAD/Cholangiogram/ O R,Initial IMPRESSION: Fluoroscopic assistance for intraoperative cholangiogram. Please see operative report for additional information. Electronically Signed: Terence Hall MD at 4:46 EST ,
--- NOTE | 2023-10-30 18:38 | PCM.OPRPT ---
Report of Operation Date of Procedure: 10/30/23 Pre-Operative Diagnosis: Acute cholecystitis Post-Operative Diagnosis: Gangrenous cholecystitis Surgery/Procedure Performed:: Laparoscopic cholecystectomy with intraoperative cholangiography Description of Surgical Findings:: ? Elongated gangrenous gallbladder with severe distention ? Gallbladder containing numerous large gallstones ? Cholangiogram showing unobstructed flow of contrast through the common bile duct and into the duodenum as well as backflow through the common hepatic and proper hepatic systems Surgeon: Bryant Aj Type of Anesthesia: General/Supplemental Anesthesiologist: Roberto Nj Specimen's removed: Gallbladder Estimated Blood Loss (mL): 50 Description of Procedure: After proper identification in the preoperative holding area the patient was brought to the operating room where he was positioned supine on the operating room table. Preoperatively SCDs were placed and antibiotics were administered. General anesthesia was then induced. Patient's abdomen was prepped and draped in usual sterile fashion. A formal timeout was conducted to confirm both patient and the procedure. Procedure was begun with a supraumbilical incision which was extended deeply down to the level of the fascia. The fascia was elevated and incised, as well as the peritoneum. A finger sweep was performed to ensure there were no underlying adhesions and a 12 mm balloon trocar was inserted. Pneumoperitoneum was established at 15 mmHg. Three additional trocars (all 5 mm) were placed in the epigastrium and in the right upper quadrant. Inspection of the peritoneum revealed no inadvertent injury to the viscera below. The gallbladder was visualized with severe inflammation and even a green patch on the fundal aspect of the gallbladder representing gangrenous transformation. Given this distention the gallbladder was unable to be easily grasped so a decompression needle was placed on our laparoscopic suction senior microsoft consultant and the bile of the gallbladder was aspirated. Once the distention was relieved, the gallbladder fundus was grasped and elevated cephalad. Using careful dissection the peritoneum was opened and the structures of the hepatocystic triangle were delineated. Once the critical view of safety was obtained, the cystic duct was singly clipped and partially divided with a ductotomy. The proximal duct was milked of any debris until there was backflow of bile (some turbid bile initially was seen). Using an Momin Pako clamp, a cholangiocatheter was fed into the proximal segment of the cystic duct and clamped into place. Under fluoroscopy a cholangiogram was then obtained showing a standard length cystic duct flowing into a common bile duct with unobstructed antegrade flow of contrast into the duodenum. There was also retrograde flow through the common hepatic duct into the right and left hepatic ducts. Satisfied with this result, the cholangiocatheter was withdrawn and the proximal cystic duct was sealed with clips and the cystic duct was completely transected. The same process was used for the cystic artery. The gallbladder was then dissected back to the cystic plate were identified a secondary cystic artery entering the body portion of the gallbladder. This was much smaller in caliber than the primary cystic artery initially clipped and it too was secured with titanium clips before it was divided with electrocautery. The specimen, very elongated, was then removed from the gallbladder fossa with the use of electrocautery. Selective electrocautery was used to obtain hemostasis in the gallbladder fossa. The gallbladder was placed in an Endo Catch bag. Morison's pouch was irrigated and the effluent was suctioned free of the peritoneum. Hemostasis was again confirmed and pneumoperitoneum was evacuated. The gallbladder was removed from the peritoneum after enlarging the peritoneal opening least 4 times its original length. The fascia at this site was then closed using #1 PDS in a running fashion. A total of 30 mL of anesthetic was injected at the port sites for postoperative pain control. The skin of each port site was then closed in subcuticular fashion using 4-0 Monocryl. Steri-Strips and bandages were applied as dressings. Patient tolerated the procedure well without any apparent complications. On emergence from their anesthetic the patient was taken to PACU for ongoing recovery. Grafts/Implants Used: None Complications None Admit VTE Documentation VTE Mechan Device Prophylaxis: SCD's Procedures Digestive 40xxx-49xxx: [id number] Laparo cholecystectomy/graph
[2023-10-30] MEDS: Bupivacaine 0.5% PF 10 ML VIAL (18:42)
[2023-10-30] MEDS: 0.9% Normal Saline (1000mL) 1,000 ML 125 ML IV (20:12)
--- OUTSIDE RECORDS SUMMARY | 2023-10-30 21:20 | XMS RPT_ITS | CCD ---
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 Name Role Phone Juani Kovacs MD Primary Care Provider [phone] JUANI KOVACS Primary Care Unavailable FILI JENSEN Attending Unavailable JUANI KOVACS Primary Care Unavailable JUANI KOVACS Attending Unavailable JUANI KOVACS Primary Care Unavailable JUANI KOVACS Attending Unavailable JUANI KOVACS Referring Unavailable JUANI KOVACS Primary Care Unavailable JUANI KOVACS Attending Unavailable JUANI KOVACS Primary Care Unavailable Juani Kovacs MD Primary Care Provider [phone] Allergies Allergy Classification Reported Allergen(s) Allergy Type Date of Onset Reaction(s) Facility (15 sources) buPROPion; Translations: [BUPROPION HCL] Drug Allergy 10-29-2008 Intolerance [facility] (15 sources) Nortriptyline; Translations: [NORTRIPTYLINE] Drug Allergy 12-31-2006 Intolerance [facility] (15 sources) Sertraline; Translations: [SERTRALINE HCL] Drug Allergy 10-29-2008 Intolerance [facility] (15 sources) tamsulosin; Translations: [TAMSULOSIN HCL] Drug Allergy 06-05-2010 Intolerance [facility] Medications Current Medications Medication Drug Class(es) [...] 90.99 kg Juani Kovacs MD Work Phone: [facility] 07-01-2023 13:37-0500 Diastolic blood pressure 76 mm[Hg] Juani Kovacs MD Work Phone: [facility] 07-01-2023 13:37-0500 Heart rate 74 /min Juani Kovacs MD Work Phone: [facility] 07-01-2023 13:37-0500 Respiratory rate 16 /min Juani Kovacs MD Work Phone: [facility] 07-01-2023 13:37-0500 Systolic blood pressure 120 mm[Hg] Juani Kovacs MD Work Phone: [facility] 12-25-2022 09:56-0400 Body weight 90.27 kg Juani Kovacs MD Work Phone: [facility] 12-25-2022 09:56-0400 Diastolic blood pressure 78 mm[Hg] Juani Kovacs MD Work Phone: [facility] 12-25-2022 09:56-0400 Heart rate 82 /min Juani Kovacs MD Work Phone: [facility] 12-25-2022 09:56-0400 Respiratory rate 16 /min Juani Kovacs MD Work Phone: [facility] 12-25-2022 09:56-0400 Systolic blood pressure 118 mm[Hg] Juani Kovacs MD Work Phone: [facility] 07-11-2022 14:39-0500 Body weight 91.26 kg Juani Kovacs MD Work Phone: [facility] 07-11-2022 14:39-0500 Diastolic blood pressure 84 mm[Hg] Juani Kovacs MD Work Phone: [facility] 07-11-2022 14:39-0500 Heart rate 64 /min Juani Kovacs MD Work Phone: [facility] 07-11-2022 14:39-0500 Respiratory rate 16 /min Juani Kovacs MD Work Phone: [facility] 07-11-2022 14:39-0500 Systolic blood pressure 132 mm[Hg] Juani Kovacs MD Work Phone: [facility] 01-08-2022 15:22-0400 Body weight 91.9 kg Juani Kovacs MD Work Phone: [facility] 01-08-2022 15:22-0400 Diastolic blood pressure 82 mm[Hg] Juani Kovacs MD Work Phone: [facility] 01-08-2022 15:22-0400 Heart rate 68 /min Juani Kovacs MD Work Phone: [facility] 01-08-2022 15:22-0400 Respiratory rate 16 /min Juani Kovacs MD Work Phone: [facility] 01-08-2022 15:22-0400 Systolic blood pressure 134 mm[Hg] Juani Kovacs MD Work Phone: [facility] Encounters Encounter Date Encounter Type Care Provider Facility Start: 10-09-2023 Shannon CARBALLO RN.EMT B Work Phone: [facility] Procedures Date Procedure [...] - S frankie or Plasma Fili Jensen APRN.EMT B Work Phone: Start: 08-11-2014 Colonoscopy Fili chen MARINE FUEL DOCK ATTENDANT.EMT B Work Phone: Plan of Treatment Date Care Activity Detail Author Start: 06-24-2028 Lipid 1996 panel - Serum or Plasma Lipid Screening [facility] Start: 06-24-2028 Lipid panel Lipid Screening [facility] Start: 06-01-2027 Lipid 1996 panel - Serum or Plasma Lipid Screening [facility] Start: 06-01-2027 LIPID SCREEN LIPID SCREEN [facility] Start: 07-11-2026 LIPID SCREEN LIPID SCREEN [facility] Start: 06-24-2026 Diabetes Screening Diabetes Screening [facility] Start: 06-01-2025 DIABETES SCREEN DIABETES SCREEN [facility] Start: 06-01-2025 Diabetes Screening Diabetes Screening [facility] Start: 05-31-2025 Urine microalbumin profile [facility] Start: 08-11-2024 Colonoscopy COLONOSCOPY [facility] Start: 08-11-2024 COLORECTAL CANCER SCREENING COLORECTAL CANCER SCREENING [facility] Start: 08-11-2024 Screening for malignant neoplasm of colon [facility] Start: 07-11-2024 DIABETES SCREEN DIABETES SCREEN [facility] Start: 08-26-2023 Advance Directive Discussion Advance Directive Discussion [facility] Start: 08-26-2023 Depression Assessment Depression Assessment [facility] Start: 06-27-2023 End: 08-27-2023 Comprehensive metabolic 2000 panel - Serum or Plasma COMP METABOLIC PANEL Lab Routine Mixed hyperlipidemia Expected: 06/27/2023 (Approximate), Expires: 08/27/2023 [facility] Work Phone: Immunizations Immunization Date Immunization Notes Care Provider Santos fuentes 07-01-2023 COVID-19 vaccine, ag e 12+ yr, 2022- season (PFIZER-BIONTECH) Juani Kovacs MD Work Phone: [facility] 07-01-2023 influenza (HD-IIV4) vaccine, age 65+ yr, high dose, quadrivalent, PF (FLUZONE HIGH-DOSE) Juani Kovacs MD Work Phone: [facility] 05-12-2022 influenza virus vacc ine, unspecified formulation Fili Iraj MARINE FUEL DOCK ATTENDANT.EMT B Work Phone: [facility] 01-27-2022 COVID-19 vaccine, booster dose (MODERNA) Juani Kovacs MD Work Phone: [facility] 07-04-2021 COVID-19 vaccine, ag e 12+ yr (PFIZER-BIONTECH - PURPLE TOP) Fili Iraj MARINE FUEL DOCK ATTENDANT.EMT B Work Phone: [facility] 05-29-2021 influenza, high dose seasonal, preservative-free Fili Iraj [employer]INE F[employer] DOCK ATTENDANT.EMT B Work Phone: [facility] 11-02-2020 COVID-19 vaccine, ag e 12+ yr (PFIZER-BIONTECH - PURPLE TOP) Fili Iraj [employer] DOCK ATTENDANT.EMT B Work Phone: [facility] 10-18-2020 zoster vaccine recombinant Fili Iraj MAR[employer] DOCK ATTENDANT.EMT B Work Phone: [facility] 10-05-2020 COVID-19 vaccine, ag e 12+ yr (PFIZER-BIONTECH - PURPLE TOP) Fili Iraj MARINE F[employer] DOCK ATTENDANT.EMT B Work Phone: [facility] 07-08-2020 zoster vaccine recombinant Fili Iraj MARINE [employer] DOCK ATTENDANT.EMT B Work Phone: [facility] 05-14-2020 influenza, high dose seasonal, preservative-free Fili Iraj MARINE [employer] DOCK ATTENDANT.EMT B Work Phone: [facility] 07-07-2018 influenza, high dose seasonal, preservative-free Fili Iraj [employer]OCK ATTENDANT.EMT B Work Phone: [facility] 06-05-2017 influenza, high dose seasonal, preservative-free Fili Iraj MAR[employer]OCK ATTENDANT.EMT B Work Phone: [facility] 05-26-2016 influenza, seasonal, injectable Fili Iraj [employer]OCK ATTENDANT.EMT B Work Phone: [facility] 10-06-2015 pneumococcal polysaccharide vaccine, 23 valent Fili Iraj MAR[employer] DOCK ATTENDANT.EMT B Work Phone: [facility] 05-31-2015 influenza, high dose seasonal, preservative-free Fili Iraj MAR[employer]OCK ATTENDANT.EMT B Work Phone: [facility] Work Phone: 05-31-2015 tetanus toxoid, redu remedios diphtheria toxoid, and acellular pertussis vaccine, adsorbed Fili Iraj MARINE [employer] DOCK ATTENDANT.EMT B Work Phone: [facility] Work Phone: 03-09-2015 hepatitis A and hepatitis B vaccine Fili Iraj MAR[employer]OCK ATTENDANT.EMT B Work Phone: [facility] 09-22-2014 hepatitis A and hepatitis B vaccine Fili Iraj MARINE [employer] DOCK ATTENDANT.EMT B Work Phone: [facility] 08-05-2014 pneumococcal conjuga te vaccine, 13 valent Fili Iraj MAR[employer] DOCK ATTENDANT.EMT B Work Phone: [facility] 08-03-2014 hepatitis A and hepatitis B vaccine Fili Iraj MAR[employer] DOCK ATTENDANT.EMT B Work Phone: [facility] 06-26-2014 influenza, seasonal, injectable Fili Iraj [employer]OCK ATTENDANT.EMT B Work Phone: [facility] 07-10-2013 influenza virus vacc ine, unspecified formulation Fili Iraj MAR[employer] DOCK ATTENDANT.EMT B Work Phone: [facility] 06-22-2012 influenza virus vacc ine, unspecified formulation Fili Iraj MAR[employer] DOCK ATTENDANT.EMT B Work Phone: [facility] 06-06-2011 zoster vaccine, live Fili C ecil MAR[employer] DOCK ATTENDANT.EMT B Work Phone: [facility] 06-05-2010 influenza virus vacc ine, unspecified formulation Fili Iraj MAR[employer]OCK ATTENDANT.EMT B Work Phone: [facility] 06-03-2009 influenza virus vacc ine, unspecified formulation Fili Iraj MAR[employer]OCK ATTENDANT.EMT B Work Phone: [facility] 07-16-2007 influenza virus vacc ine, unspecified formulation Fili Iraj MAR[employer]OCK ATTENDANT.EMT B Work Phone: [facility] 06-19-2006 influenza virus vacc ine, unspecified formulation Fili Iraj MARINE F[employer] DOCK ATTENDANT.EMT B Work Phone: [facility] Work Phone: Payers Date Payer Category Payer Medicare [id number] 2019 Unknown MMO MMO MEDICARE SUPPLEMENT [id number] 2019-Present [phone] [address] [place] [address] Indemnity [id number] 2019 Unknown MMO MMO MEDICARE SUPPLEMENT [id number] 2019-Present [phone] [address] [place] [address] Indemnity [id number] 2014 Medicare MEDICARE MEDICAR E A AND B [id number] 2014-Present [phone] [address] [address] [place] [address] Medicare [id number] 2014 Medicare MEDICARE MEDICAR E A AND B [id number] 2014-Present [phone] [place] [address] Medicare [id number] 2014 Medicare [id number] Social History Date Type Detail Facility Start: 10-29-2017 End: 07-11-2022 Tobacco smoking status NHIS Ex-smoker [facility] Start: 11-06-2021 End: 09-17-2023 Alcohol intake Current drinker of alcohol (finding) [facility] Start: 04-11-2020 End: 10-05-2022 History SDOH Alcohol Frequency 5 [facility] Start: 04-11-2020 End: 10-05-2022 History SDOH Alcohol Std Drinks 1 [facility] Start: 09-12-2016 History SDOH Alcohol Comment two beer daily [facility] Start: 04-11-2020 End: 10-05-2022 History SDOH Social Connections Phone 2 [facility] Start: 04-11-2020 End: 10-05-2022 History SDOH Social Connections Living 3 [facility] Start: 04-11-2020 End: 10-05-2022 History SDOH Physical Activity DPW 6 [facility] Start: 04-11-2020 History SDOH Physica l Activity MPS 10 [facility] Start: 04-11-2020 Education 17 [facility] Start: 1950 Sex Assigned At Not on file [facility] Start: 12-29-2021 End: 07-11-2022 Exposure to SARS-CoV-2 (event) Not sure [facility] History of tobacco use Current smoker [facility] Start: 10-29-2017 End: 07-11-2022 Tobacco use and exposure Smokeless tobacco non-user [facility] Start: 07-11-2022 Tobacco [facility] Start: 10-05-2022 End: 07-01-2023 History of Social function [facility] Start: 10-05-2022 End: 07-01-2023 Social connection and isolation panel [facility] Do you belong to any clubs or organizations such as oriental orthodox groups, unions, fraternal or athletic groups, or school groups? Yes [facility] Are you now , , , , never or living with a partner? [facility] How often to you hav e a drink containing alcohol? 4 or more times a week [facility] How many standard dr inks containing alcohol do you have on a typical day? 1 or 2 [facility] How often do you hav e 6 or more drinks on 1 occasion? Never [facility] How hard is it for y ou to pay for the very basics like food, housing, medical care, and heating Not hard at all [facility] Do you feel stress - tense, restless, nervous, or anxious, or unable to sleep at night because your mind is troubled all the time - these days [OSQ] Only a little [facility] (I/We) worried wheth er (my/our) food would run out before (I/we) got money to buy more. Never true [facility] In the past 12 month s, was there a time when you were not able to pay the mortgage or rent on time? No [facility] Clinical Notes 08-05-2014 to 10-10-2023 Telephone Encounter - Juani Kovacs MD - 10/10/2023 11:54 AM ESTTelephone Encounter - Meredith Lopez Ma - 09/26/2023 9:58 AM Juani Daly MD - 07/01/2023 1:40 PM EST Note Date & Type Note [facility] 10-10-2023 Miscellaneous Notes OK to refill as ordered Juani Kovacs MD documented in this encounter [facility] 09-26-[address] [facility] sleep disorder center sends request of recent OV discussing need for sleep study as well as med list and problem list. This has been printed and faxed to [facility] at [phone]. Meredith Lopez Ma documented in this encounter [facility] 09-17-2023 Note HNO ID: [id number] Author: JUANI KOVACS MD Service: ? Author [...] home. Pt okay with completing at [facility]. Past medical history, appointments, medications, allergies [...] (FLONASE) 50 mcg/actuation nasal spray Use 1 [place] in each nostril twice daily. loratadine (CLARITIN) [...] Will order PSG to complete at [facility] 2. Hypersomnia - ICD9: 780.54, ICD10: G47.10 - As noted above 3. Generalized anxiety disorder - ICD9: 300.02, ICD10: F41.1 - Rx sent into Pharmacy - LORAZEPAM 0.5 MG TABLET Will fax order over to [facility], once results received will review. I agree with the Chief Complaint, ROS, and Past Histories independently gathered by the clinical ict customer support officer and the remaining scribed note accurately describes my personal service to the patient. Medical Decision Making: Problems: Moderate: 1+ chronic illnesses with change Data: Unique test(s) ordered: 1 Risk: Low: Low risk from testing/treatment Medical Decision Making Level: 3 - Low Juani Kovacs MD The documentation for this note was completed by Naida Najera (more content not included)... [facility] 07-01-2023 Note HNO ID: [id number] Author: Juani Kovacs MD Service: ? Author [...] (FLONASE) 50 mcg/actuation nasal spray Use 1 [place] in each nostril twice daily. loratadine (CLARITIN) [...] VACC (more content not included)... [facility] 07-01-2023 History of Presen t illness Narrative [...] (FLONASE) 50 mcg/actuation nasal spray Use 1 [place] in each nostril twice daily. loratadine (CLARITIN) [...] YR, HIGH DOSE, QUADRIVALENT (FLUZONE HIGH-DOSE) - [employer] COVID-19 VACCINE (2022- [place]) AGE 12+ YR [...] Past Histories independently gathered by the clinical ict customer support officer and the remaining scribed note accurately describes [...] Meredith Lopez Ma documented in this encounter [facility] 06-20-2023 Miscellaneous Notes Spoke with pt [...] Amber Jacobson LPN. documented in this encounter [facility] 03-21-2023 Miscellaneous Notes Approved. PDMP website [...] Blanka Ibanez LPN documented in this encounter [facility] 01-03-2023 Miscellaneous Notes OK to refill as ordered Juani Kovacs MD Patient has been identified by name and date of : Yes Requested Prescriptions Pending Prescriptions Disp Refills busPIRone (BUSPAR) 15 mg tablet 90 tablet 3 Sig: Take 0.5 tablets by mouth twice daily. RX INSTRUCTIONS: Patient aware RX will be sent to pharmacy. No need to notify patient. Julia Kincaid MA [facility] 06/2022 Nov 06/2023 Last refill; 12/2021 documented in this encounter [facility] 12-25-2022 Note HNO ID: [id number] Author: Juani Kovacs MD Service: ? Author Type: Physician Type: Progress Notes Filed: 12/25/2022 11:48 AM Note Text: Chief Complaint Patient presents with: F/U 6 Month HPI Juan Jose Shultz is a 72 year old male who presents here today for a 6 month follow up. Pt here today for a follow up. Was in [facility] at the end of October, beginning of November. Will be going to take in [place]. Was seen in September virtually for Covid, [...] (FLONASE) 50 mcg/actuation nasal spray Use 1 [place] in each nostril twice daily. Naproxen (EC-NAPROSYN) [...] diagnosis) (more content not included)... [facility] 12-25-2022 History of Presen t illness Narrative Chief Complaint Patient presents with: F/U 6 Month HPI Juan Jose Shultz is a 72 year old male who presents here today for a 6 month follow up. Pt here today for a follow up. Was in [facility] at the end of October, beginning of November. Will be going to take in [place]. Was seen in September virtually for Covid, [...] (FLONASE) 50 mcg/actuation nasal spray Use 1 [place] in each nostril twice daily. Naproxen (EC-NAPROSYN) [...] Past Histories independently gathered by the clinical ict customer support officer and the remaining scribed note accurately describes [...] Naida Rodriguez Ma documented in this encounter [facility] 12-19-2022 Miscellaneous Notes Approved PDMP website checked and validated. All prescriptions have been APPROPRIATELY filled. No suspicious activity was identified. 12/19/2022 by Fili Jensen APRN.EMT B The following approved medication requests have been [...] Blanka Ibanez LPN documented in this encounter [facility] 10-19-2022 Miscellaneous Notes The following approved [...] No need to notify patient. Scheduled 01/10/23. Naida Rob LPN documented in this encounter [facility] 10-05-2022 Note HNO ID: [id number] Author: Fili Jensen APRN.CNP Service: ? Author Type: Nurse Practitioner Type: Progress Notes Filed: 10/05/2022 12:02 PM Note Text: Telemedicine Visit - Distance Health Virtual Visit Note Patient seen on Telephone platform. Unable to do a virtual, had difficulty with logging in. Location of patient: [place] Juani Kovacs MD History of Present Illness [...] (FLONASE) 50 mcg/actuation nasal spray Use 1 [place] in each nostril twice daily. Naproxen (EC-NAPROSYN) [...] would like to continue care with a [facility] Virtual Primary Care physician, please ask your provider to place a Establish Primary Care order. Use [employer] to manage your care, wherever you are, 18/03, on your mobile device or computer. [employer] connects you to [employer] so you can access all your health information in one place and also schedule and request virtual appointments with primary care providers. Nirmatrelvir/Ritonavir (Paxlovid) Eligibility and Patient Discussion [facility] Formulary Restriction Criteria: Adult outpatients 18 [...] s (more content not included)... [facility] 07-11-2022 History of Presen t illness Narrative [...] (FLONASE) 50 mcg/actuation nasal spray Use 1 [place] in each nostril twice daily. loratadine (CLARITIN) [...] Past Histories independently gathered by the clinical ict customer support officer and the remaining scribed note accurately describes [...] Naida Rodriguez Ma documented in this encounter [facility] 06-21-2022 Miscellaneous Notes Approved. PDMP website checked and validated. All prescriptions have been APPROPRIATELY filled. No suspicious activity was identified. 06/21/2022 by Fili Jensen APRN.CNP The following approved medication requests have been transmitted electronically. Requested Prescriptions Signed Prescriptions Disp Refills LORazepam (ATIVAN) 0.5 mg 90 tablet 0 Sig: Take 1 tablet by mouth once daily for 90 days. Authorizing Provider: FILI JENESN APRN.CNP RX INSTRUCTIONS: Patient aware RX will be sent to pharmacy. No need to notify patient. Last OV: 01/08/22 with PCP Last refill: 03/26/22 With 90 and 0 refills Follow up: 07/11/22-6 month f/u with PCP Caity Mcnulty MA documented in this encounter [facility] 05-08-2022 Miscellaneous Notes Call to pt and notified him of below. He did contact Dr. Tracey's office who states he needs referral before anything can be scheduled. Pt notified that referral would be faxed to Dr. Tracey's office at [phone]. Pt noted he did not need ENT [...] has been sent. documented in this encounter [facility] 01-08-2022 History of Presen t illness [...] (FLONASE) 50 mcg/actuation nasal spray Use 1 [place] in each nostril twice daily. loratadine (CLARITIN) [...] down his legs. - Will f/u with [facility] to have his back checked out. 6 mo f/u with labs prior I agree with the Chief Complaint, ROS, and Past Histories independently gathered by the clinical ict customer support officer and the remaining scribed note accurately describes [...] Naida Rodriguez Ma documented in this encounter [facility] 12-22-2021 Miscellaneous Notes Approved. [facility] and validated. All prescriptions have [...] you. JERRY Segovia documented in this encounter [facility] documented as of this encounter (statuses as of 12/22/2021) [facility] History of Past illness Narrative* Problem Noted Date Resolved Date Welcome to Medicare preventive visit 08/05/2014 09/18/2016 Essential hypertension 6 documented as of this encounter (statuses as of 01/08/2022) [facility] History of Past illness Narrative* Problem Noted Date Resolved Date Welcome to Medicare preventive visit 08/05/2014 09/18/2016 Essential hypertension 6 documented as of this encounter (statuses as of 05/08/2022) [facility] History of Past illness Narrative* Problem Noted Date Resolved Date Welcome to Medicare preventive visit 08/05/2014 09/18/2016 Essential hypertension 6 documented as of this encounter (statuses as of 06/21/2022) [facility] History of Past illness Narrative* Problem Noted Date Resolved Date Welcome to Medicare preventive visit 08/05/2014 09/18/2016 Essential hypertension 6 documented as of this encounter (statuses as of 07/12/2022) [facility] History of Past illness Narrative* Problem Noted Date Resolved Date Welcome to Medicare preventive visit 08/05/2014 09/18/2016 Essential hypertension 6 documented as of this encounter (statuses as of 10/19/2022) [facility] History of Past illness Narrative* Problem Noted Date Resolved Date Welcome to Medicare preventive visit 08/05/2014 09/18/2016 Essential hypertension 6 documented as of this encounter (statuses as of 12/19/2022) [facility] History of Past illness Narrative* Problem Noted Date Resolved Date Welcome to Medicare preventive visit 08/05/2014 09/18/2016 Essential hypertension 6 documented as of this encounter (statuses as of 12/25/2022) [facility] History of Past illness Narrative* Problem Noted Date Resolved Date Welcome to Medicare preventive visit 08/05/2014 09/18/2016 Essential hypertension 6 documented as of this encounter (statuses as of 01/03/2023) [facility] History of Past illness Narrative* Problem Noted Date Diagnosed Date Resolved Date Welcome to Medicare preventive visit 08/05/2014 09/18/2016 Essential hypertension 08/16 documented as of this encounter (statuses as of 03/21/2023) [facility] History of Past illness Narrative* Problem Noted Date Diagnosed Date Resolved Date Welcome to Medicare preventive visit 08/05/2014 09/18/2016 Essential hypertension 08/16 documented as of this encounter (statuses as of 06/20/2023) [facility] History of Past illness Narrative* Problem Noted Date Diagnosed Date Resolved Date Welcome to Medicare preventive visit 08/05/2014 09/18/2016 Essential hypertension 08/16 documented as of this encounter (statuses as of 07/02/2023) [facility] History of Past illness Narrative* Problem Noted Date Diagnosed Date Resolved Date Welcome to Medicare preventive visit 08/05/2014 09/18/2016 Mild episode of recurrent ma clement depressive disorder 03/13/2006 09/17/2023 Essential hypertension 08/16 documented as of this encounter (statuses as of 09/26/2023) [facility] History of Past illness Narrative* Problem Noted Date Diagnosed Date Resolved Date Welcome to Medicare preventive visit 08/05/2014 09/18/2016 Mild episode of recurrent ma clement depressive disorder 03/13/2006 09/17/2023 Essential hypertension 08/16 documented as of this encounter (statuses as of 10/10/2023) [facility] Generalized [facility] Diagnosis Generalized anxiety disorder- Primary [...] Generalized anxiety disorder [facility] Diagnosis Mild episode of recurrent major depressive disorder (HCC)- Primary Generalized anxiety disorder Mixed hyperlipidemia Arthralgia, unspecified joint BPH with urinary obstruction Hypertrophy of prostate with urinary obstruction and other lower urinary tract symptoms (LUTS) [facility] Diagnosis Generalized anxiety disorder Mild episode of recurrent major depressive disorder (HCC) [facility] Diagnosis Generalized anxiety disorder [facility] Diagnosis Generalized anxiety disorder documented in this encounter [facility] note* Diagnosis Mild episode of recurrent major [...] involving multiple joints documented in this encounter [facility] note* Diagnosis BPH with urinary obstruction Hypertrophy of prostate with urinary obstruction and other lower urinary tract symptoms (LUTS) documented in this encounter [facility] Reason for Referral Specialty Diagnoses / Procedures Referred By Franko wilder Referred To Contact Dentistry Diagnoses Tongue lesion Procedures CONSULT TO DENTISTRY OFFICE/OUTPATIENT [facility] 60-74 MINUTES Fili Jensen APRN.EM[address] [place] [address] Referral ID Status Reason Start Date Expiration Date Visits Requested Visits Authorized [id number] Pending Review PCP Requested Referral 05/08/2022 05/08/2023 [...] or prosecute any alcohol or drug abuse patient.[facility] the event this information is protected by the Federal Confidentiality of Alcohol and Drug Abuse Patient Records regulations: The Federal rules restrict any use of the information to criminally investigate or prosecute any alcohol or drug abuse patient.[facility] the event this information is protected by the Federal Confidentiality of Alcohol and Drug Abuse Patient Records regulations: The Federal rules restrict any use of the information to criminally investigate or prosecute any alcohol or drug abuse patient.[facility] the event this information is protected by the Federal Confidentiality of Alcohol and Drug Abuse Patient Records regulations: The Federal rules restrict any use of the information to criminally investigate or prosecute any alcohol or drug abuse patient.[facility] the event this information is protected by the Federal Confidentiality of Alcohol and Drug Abuse Patient Records regulations: The Federal rules restrict any use of the information to criminally investigate or prosecute any alcohol or drug abuse patient.[facility] the event this information is protected by the Federal Confidentiality of Alcohol and Drug Abuse Patient Records regulations: The Federal rules restrict any use of the information to criminally investigate or prosecute any alcohol or drug abuse patient.[facility] the event this information is protected by the Federal Confidentiality of Alcohol and Drug Abuse Patient Records regulations: The Federal rules restrict any use of the information to criminally investigate or prosecute any alcohol or drug abuse patient.[facility] the event this information is protected by the Federal Confidentiality of Alcohol and Drug Abuse Patient Records regulations: The Federal rules restrict any use of the information to criminally investigate or prosecute any alcohol or drug abuse patient.[facility] the event this information is protected by the Federal Confidentiality of Alcohol and Drug Abuse Patient Records regulations: The Federal rules restrict any use of the information to criminally investigate or prosecute any alcohol or drug abuse patient.[facility] the event this information is protected by the Federal Confidentiality of Alcohol and Drug Abuse Patient Records regulations: The Federal rules restrict any use of the information to criminally investigate or prosecute any alcohol or drug abuse patient.[facility] the event this information is protected by the Federal Confidentiality of Alcohol and Drug Abuse Patient Records regulations: The Federal rules restrict any use of the information to criminally investigate or prosecute any alcohol or drug abuse patient.[facility] the event this information is protected by the Federal Confidentiality of Alcohol and Drug Abuse Patient Records regulations: The Federal rules restrict any use of the information to criminally investigate or prosecute any alcohol or drug abuse patient.[facility] the event this information is protected by the Federal Confidentiality of Alcohol and Drug Abuse Patient Records regulations: The Federal rules restrict any use of the information to criminally investigate or prosecute any alcohol or drug abuse patient.[facility] the event this information is protected by the Federal Confidentiality of Alcohol and Drug Abuse Patient Records regulations: The Federal rules restrict any use of the information to criminally investigate or prosecute any alcohol or drug abuse patient.[facility] Reason for Visit (unrecogniz ed section [...] 07/01/2023 Flu vaccination Reason Comments Forms 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 Start Date End Date Juani Kovacs MD [address], [place] [phone] PCP - General Family Medicine 11/07/16 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 Start Date End Date Juani Kovacs MD [address] [facility] [place] [address] PCP - General Family Medicine 11/07/16 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 Start Date End Date Juani Kovacs MD [address] [facility] [place] [address] PCP - General Family Medicine 11/07/16 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 Start Date End Date Juani Kovacs MD [address] [facility] [place] [address] PCP - General Family Medicine 11/07/16 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 Start Date End Date Juani Kovacs MD [address] [facility] [place] [address] PCP - General Family Medicine 11/07/16 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 Start Date End Date Juani Kovacs MD [address] [facility] [place] [address] PCP - General Family Medicine 11/07/16 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 Start Date End Date Juani Kovacs MD [address] [facility] [place] [address] PCP - General Family Medicine 11/07/16 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 [facility]. provides no warranty or guarantee of the accuracy or completeness of information in this document.
[2023-10-30] MEDS: 0.9% Normal Saline (250mL Bag) 250 ML 15 ML IV (22:22)
[2023-10-30] MEDS: Finasteride 5 MG Tablet PO (22:23)
[2023-10-30] MEDS: busPIRone 15 MG TABLET PO (22:23)
[2023-10-31 00:12] VITALS: BP 111/57; PULSE 93; RESP 16; TEMP 37.2; O2SAT 95
[2023-10-31] MEDS: Ibuprofen 400 MG Tablet PO ×3 (00:16→11:29)
[2023-10-31] MEDS: 0.9% Normal Saline (1000mL) 1,000 ML 125 ML IV (04:29)
[2023-10-31 04:30] VITALS: BP 114/64; PULSE 87; RESP 16; TEMP 37; O2SAT 96
[2023-10-31] MEDS: Piperacil/Tazobactam 3.375 GM in 0.9% Normal Saline (50mL MB+) 50 ML IV (06:12)
[2023-10-31 08:00] VITALS: BP 149/82; PULSE 94; RESP 15; TEMP 36.9; O2SAT 95
[2023-10-31] MEDS: busPIRone 15 MG TABLET PO (08:40)
[2023-10-31] MEDS: Finasteride 5 MG Tablet PO (08:41)
--- NOTE | 2023-10-31 09:02 | PCM.PN.SRG ---
Subjective Subjective Patient evaluated this morning resting comfortably. He denies nausea, vomiting, fever. He notes minimal amount of incisional discomfort. He is tolerating his current diet. Objective Data Objective Data Vital Signs: Vital Signs Temp Pulse Resp BP Pulse Ox O2 Del Method 98.6 F 87 16 114/64 96 Room Air 10/31/23 04:30 10/31/23 04:30 10/31/23 04:30 10/31/23 04:30 10/31/23 04:30 10/31/23 04:30 Oxygen Delivery Method Room Air Weight: 202 lb 12.8 oz Body Mass Index (BMI) 29.0 Intake & Output: Intake and Output for Last 24 Hours 10/29/23 10/30/23 10/31/23 23:59 23:59 23:59 Intake Total 100 / 100 2050 / 2050 Output Total 800 / 800 Balance 100 / 100 1250 / 1250 Lab / Micro Data 10/30/23 02:18 10/30/23 02:18 Radiography Diagnostic Testing: Radiology Impression Cholangiogram 10/30/23 17:05 IMPRESSION: Fluoroscopic assistance for intraoperative cholangiogram. Please see operative report for additional information. Electronically Signed: Terence Hall MD at 4:46 EST Reading Location ID and State: [facility] / [place] Tel , Service support , Physical Exam GI GI Narrative: Abdomen- soft, minimal tenderness. Incisions c/d/i. Assessment & Plan Assessment/Plan (1) Acute calculous cholecystitis: PLAN: Patient recovering well Ready for discharge Charges/Coding Visit Charges Inpatient E&M: 65626 Subs Hosp L1 (no charge; post-op)
--- NOTE | 2023-10-31 09:26 | CASEMGMT ---
Social Work SW met with pt to discuss advance directives.? Pt confirms he has completed a living will and health care POA naming his Fang Shultz.? Pt notified that documents are not on file at [facility] and SW requested they be brought in for scanning into the EMR.? JESICA Sheehan
--- NOTE | 2023-10-31 09:44 | DCINST_ITS ---
Discharge Instructions Diet Discharge Diet: Light diet - advance as tolerated Activity Discharge Activity: May Not Drive (3-5 days) and May Shower Lifting Restrictions: 15 pounds for 3 weeks Dressing / Incision Call your doctor if your incision/area has: Continuous Slow Oozing, Sudden Increased Bleeding, Increased Pain/ Swelling, Increased Redness, Foul Smelling Discharge and Swelling at the incision site Call your doctor if you observe: Fever of 101 or Higher Suture Line Care: Avoid Pulling/Pushing and Avoid Pinching/Bending Remove Dressing in: 2 days Cleanse incision/area with: Soap & Water Follow Up Care Please Follow Up With: Bryant Aj MD When: Please call to schedule an appointment at [phone] for 10-14 days following your surgery Test Results: Test results from this visit will be discussed in further detail at your follow- up appointment, if applicable. Discharge Plan Admission Admit Date/Time: 10/30/23 19:01 Primary Reason for Your Visit: Acute cholecystitis Attending Provider: Bryant Aj Primary Care Provider: Oswald Shabazz Instructions Additional Instructions / Restrictions: Cholecystectomy Diet ? Start light with soups and soft bland foods. You may advance diet as tolerated. Activity ? You may drive in 3-5 days but not while taking narcotic pain medication. ? I encourage walking. You may go up steps, one at a time. ? Do not swim or use hot tubs for 2 weeks. ? For comfort, you may use warm compresses or ice as needed for 15-20 minutes at a time. Lifting ? You may lift up to 15 pounds for 3 weeks. Dressings/Incision ? You may shower OVER your plastic dressings ? Do NOT tub bathe for 1 week ? Leave plastic dressings on for 2 days. ? When plastic dressings are removed, you will find steri strips. It is okay to continue showering with them in place, pat them dry. ? You may remove steri-strips after 1 week. We recommend getting them soaking wet for easier removal. Medications ? Anesthesia used during surgery and pain medications may cause constipation. I recommend initiating on the day of surgery a fiber supplement like, Metamucil, Citrucel, FiberCon, Benefiber, or a generic form of these medications. 1 heaping tablespoon in water daily. You may continue to utilize any bowel regimen or oral laxatives that you routinely take. ? As long as you are not intolerant to Tylenol, acetaminophen, ibuprofen, Motrin, Advil, Aleve, or similar medications, I would recommend transitioning to these uirh-trj-[id number] medicines as soon as possible instead of continued use of narcotic pain medication. Follow up ? You should call [facility] soon after surgery, at [phone] option 1 to make a follow up appointment for 10-14 days after your surgery. Discharge Orders/Prescriptions Prescriptions: New acetaminophen 500 mg Tablet 500 mg PO Q6H PRN PRN (Reason: Pain Score 1-10) Qty: 0 0RF Continued fluticasone propionate [Flonase Allergy Relief] 50 mcg/actuation spray,suspension 1 spray INTRANASAL BID PRN (Reason: allergy symptoms) Rx Instructions: administer into each nostril lorazepam 0.5 mg tablet 0.5 mg PO QHS venlafaxine [Effexor XR] 37.5 mg capsule,extended release 24hr 37.5 mg PO BID buspirone 15 mg tablet 15 mg PO BID dutasteride 0.5 mg capsule 0.5 mg PO DAILY naproxen [Naprosyn] 500 mg tablet 500 mg PO BID Referrals / Follow Up: Oswald Shabazz MD [Primary Care Provider] - Bryant Aj MD [Med Staff - Active Staff] - Disposition Disposition (needs filled in before D/C Order can be placed): Home, Self Care
--- NOTE | 2023-10-31 11:26 | CASEMGMT ---
RN?CM?PACKAGE DELIVERY ROOM SERVICE RUNNER?CM?to room to meet with patient for initial transition planning/care coordination?assessment.?RN?CM?introduced self and role at [facility].? Pt voices understanding and consents to?assessment?at this time.? Pt resting in bed in no distress at this time.? at bedside. Pt is A/O at this time and answers all questions appropriately.?? Care providers, pharmacy, and demographics verified/updated at this time. PCP: Dr Shabazz Specialists: none Preferred Pharmacy: [facility] @ d/c. Otherwise, [facility] Insurance: [facility], [place] [place] Prescription Benefit:?Yes, [employer] LNOK: Fang Living Arrangements: Lives w/ in one-story home w/basement and 2 steps to enter. Denies difficulty w/stairs. Independent. Transportation:?Pt, DME: ? Denies using any DME HHC/SNF: No hx of either. No needs identified. Pt wishes to return home and states has no concerns with going home at time of discharge.? Pt and voice no concerns/needs at this time.? PLAN:??Home Hannah MATIASN?RN?CM
--- NOTE | 2023-10-31 12:46 | PHA.DC.MC.R ---
Pharmacy [facility] Pharmacy Service has performed discharge medication reconciliation and counseling for this patient. The patient's discharge medication list was reviewed for discrepancies and discrepancies were resolved. The patient was counseled on the following discharge medications and changes in medications for homegoing were reviewed. 1. TYLENOL The Reason for Use, instructions for use, and potential side effects were reviewed for all new medications. The patient's questions regarding all of their medications were answered. The patient was able to verbally demonstrate an understanding of their discharge medications. Medications at Discharge Home Medications buspirone 15 mg tablet 15 mg PO BID 01/25/20 dutasteride 0.5 mg capsule 0.5 mg PO DAILY 01/25/20 fluticasone propionate 50 mcg/actuation nasal spray,suspension (Flonase Allergy Relief) 1 spray intranasal BID PRN allergy symptoms 01/25/20 lorazepam 0.5 mg tablet 0.5 mg PO QHS anxiety 01/25/20 venlafaxine 37.5 mg capsule,extended release 24 hr (Effexor XR) 37.5 mg PO BID 01/25/20 naproxen 500 mg tablet (Naprosyn) 500 mg PO BID 10/30/23 acetaminophen 500 mg tablet 500 mg PO Q6H PRN PRN Pain Score 1-10 #0 tabs 10/31/23
== END 2023-10-31 12:15 | disposition home or self-care (01) | DRG 418 ==
LOC: ED 09:14 → AC 10:26 → MS3 19:05 → SDC 11-18 15:37 → AC 11-18 15:37 → SDC 11-18 15:37 → MS3 11-18 15:37
PROVIDERS: Admitting Provider Surgery; Emergency Provider Emergency Medicine; PCP Family Medicine; Visit Provider Surgery
PROC: 0FT44ZZ Resection of Gallbladder, Percutaneous Endoscopic Approach (ICD-10-PCS; CPT 47610; principal; 2023-10-30 13:15)
DX: K80.00 Calculus of gallbladder with acute cholecystitis without obstruction (principal); C64.1 Malignant neoplasm of right kidney, except renal pelvis; K82.A1 Gangrene of gallbladder in cholecystitis; E78.2 Mixed hyperlipidemia; F41.1 Generalized anxiety disorder; Z79.899 Other long term (current) drug therapy; Z87.891 Personal history of nicotine dependence
CPT/HCPCS: 74177; 74300; 76000; 76705; 80053; 83690; 85025; 88304; 93005; 99284; J7030; J7050; Q9967; A4216; J2405

== ENCOUNTER → 2024-01-09 | Outpatient (CLI) | payer MEDICARE, OTHER, SELFPAY ==
--- NOTE | 2024-01-09 12:19 | CDU_ITS ---
Reason For Study: lightheaded, dizzy Rt. Velocities/BP Lt. Velocities/BP Prox CCA 91.0/21.1 cm/sec. Prox CCA 93.8/21.2 cm/sec. Mid CCA 80.6/13.5 cm/sec. Mid CCA 79.5/21.2 cm/sec. Dist CCA 74.0/15.4 cm/sec. Dist CCA 68.5/20.1 cm/sec. Prox ICA 60.8/14.6 cm/sec. Prox ICA 52.0/15.7 cm/sec. Mid ICA 100.3/32.2 cm/sec. Mid ICA 77.3/31.1 cm/sec. Dist ICA 75.2/26.7 cm/sec. Dist ICA 87.2/28.9 cm/sec. Rt. ICA/CCA = 1.2. Lt. ICA/CCA = 1.1. Prox ECA 96.1/10.2 cm/sec. Prox ECA 94.9/12.4 cm/sec. Rt. Vert. 64.5/18.2 cm/sec. Lt. Vert. 47.5/12.6 cm/sec. Right Extracranial There is intimal thickening but no significant atherosclerotic plaque noted in the right common carotid artery. There is homogeneous, smooth atherosclerotic plaque noted in the right internal carotid artery. There is intimal thickening but no significant atherosclerotic plaque noted in the right external carotid artery. Antegrade flow is noted in the right vertebral artery. Left Extracranial There is intimal thickening but no significant atherosclerotic plaque noted in the left common carotid artery. There is intimal thickening but no significant atherosclerotic plaque noted in the left internal carotid artery. There is intimal thickening but no significant atherosclerotic plaque noted in the left external carotid artery. Antegrade flow is noted in the left vertebral artery. Procedure Carotid Duplex [id number]. This is a Carotid Duplex examination using B-mode, color flow and specral Doppler. The exam was diagnostic. Exam performed in department. VL/Carotid Duplex Ultrasound Interpretation Summary Mild (<50%) stenosis right extracranial internal carotid. No significant athero sclerotic plaque or stenosis noted in the left internal carotid artery. Flow within the vertebral a rteries is antegrade bilaterally. Ordering Physician: Hermelinda Griffin Referring Physician: Hermelinda Griffin Performed By: Jerson Dyer RVT
--- NOTE | 2024-01-13 14:51 | STRESSREP_ITS ---
Stress Test Report Date: 01/09/2024 Procedure: Exercise tolerance test Indications: Palpitations Consent: Per the patient Procedure: The patient exercised on a Aureliano protocol for 9 minutes achieving a peak heart rate of 157 bpm (107% predicted maximal heart rate) with a peak blood pressure 196/60 mmHg and a peak MET capacity of approximately 10.1 MET's. The baseline ECG demonstrated normal sinus rhythm. The peak exercise ECG demonstrated no significant ischemic changes. [There were no cardiac dysrhythmias pretest, during exercise, or recovery]. The functional capacity was considered excellent for age. The patient had no complaint of chest discomfort during exercise or recovery. The examination was discontinued secondary to achieving target heart rate. Impression: 1. Technically adequate (percent predicted maximal heart rate greater than 85%) exercise tolerance test 2. Stress test is negative for exercise-induced chest pain. 3. Stress test test is negative for exercise-induced EKG changes of ischemia. 4. Functional capacity is excellent for age This note was generated with [employer]eritasation software. It may contain incorrect words, spelling, and punctuation that were not noted in checking the note before signing.
== END | disposition home or self-care (01) ==
LOC: CVS 12:17
PROVIDERS: PCP Family Medicine; Referring Provider Internal Medicine Cardiovascular Disease; Visit Provider Internal Medicine Cardiovascular Disease
DX: I51.89 Other ill-defined heart diseases (principal); R00.2 Palpitations; R42 Dizziness and giddiness
CPT/HCPCS: 93017; 93880

== ENCOUNTER → 2024-10-01 | Outpatient (CLI) | payer MEDICARE, OTHER, SELFPAY | END | disposition home or self-care (01) | LOC: LABSPEC 15:21 | PROVIDERS: PCP Family Medicine; Referring Provider Otolaryngology Otolaryngology/Facial Plastic Surgery; Visit Provider Otolaryngology Otolaryngology/Facial Plastic Surgery | DX: J00 Acute nasopharyngitis [common cold] (principal) | CPT/HCPCS: 87070 ==